=== PATIENT | male | born 1965 | race Caucasian/White ===

== ENCOUNTER 2017-06-30 11:48 | Emergency (ER) | payer SELFPAY ==
[~2017-06-30] VITALS: Ht 180.3 cm; Wt 88.0 kg
[~2017-06-30 11:48] MED LIST: AGM875 PO; ALBU1AER9 INH; AZIT500T26 PO; EPP3 IM; GUAI100L PO; LCTX PO; PRD/1 PO
[2017-06-30 11:54] VITALS: TEMP 36.9; Ht 180.3 cm; Wt 88.0 kg
[2017-06-30 13:08] LABS: BASO % 0.4 %; BASO ABS # 0.02 K/uL (0-0.2); COMPLETE YES; EOS % 2.1 %; HEMATOCRIT 43.9 % (42-52); IG% 0.2 %; LYMPH % 23.4 %; MEAN CELL VOLUME 84.9 fL (80-100); MEAN CORPUSCULAR HEMOGLOBIN 31.7 pg (25-34); MEAN CORPUSCULAR HGB CONC 37.4 g/dl (32-36); MEAN PLATELET VOLUME 10.6 fL (7.4-10.4); MONO % 5.5 %; NEUT % 68.4 %; PLATELET COUNT 164 K/uL (130-400); RED BLOOD COUNT 5.17 M/uL (4.7-6.1); WHITE BLOOD COUNT 5.12 K/uL (4.8-10.8)
[2017-06-30 13:29] LABS: URINE APPEARANCE CLEAR (CLEAR); URINE BILIRUBIN NEG (NEG); URINE COLOR YELLOW; URINE EPITHELIAL CELL AUTO 0-5 /lpf (0-5); URINE NITRITE NEG (NEG); URINE SPECIFIC GRAVITY 1.037 (1.000-1.030); UROBILINOGEN NEG (NEG); ZZUR CULT IF INDIC CLEAN CATCH NO
[2017-06-30] MEDS ORDERED: NovoLIN-R INSULIN PER UNIT CHARGE SC STA (13:30)
[2017-06-30] MEDS ORDERED: NovoLIN-R INSULIN PER UNIT CHARGE IV STA (13:30)
[2017-06-30 13:45] LABS: MANUAL MICROSCOPIC REQUIRED? NO; REVIEW REQ? NO
[2017-06-30 14:05] LABS: VEN BLD GAS O2 SATURATION 64.6 %; VEN BLOOD GAS BASE EXCESS 1.2 mEq/L
[2017-06-30 14:32] LABS: BUN/CREATININE RATIO 12.3 (10-20); CALCIUM 8.9 mg/dl (8.5-10.1); CREATININE 1.2 mg/dl (0.60-1.40); POTASSIUM 4.3 mmol/L (3.5-5.1)
[2017-06-30 14:45] LABS: BETA-HYDROXYBUTYRATE 1.63 mg/dL (0.2-2.81)
[2017-06-30] MEDS ORDERED: LANTUS PER UNIT CHARGE SQ STA (14:56)
[2017-06-30 15:23] VITALS: BP 117/88; PULSE 93; O2SAT 98
--- NOTE | 2017-06-30 15:45 | EMERGENCY ROOM VISIT NOTE ---
History Report prepared by Jaylon: Emilio Roger Under the Supervision of: Dr. Bob Dumont D.O. First contact with patient: 12:37 Chief Complaint: HYPERGLYCEMIA Stated Complaint: ELEVATED BLOOD SUGAR Nursing Triage Summary: pt states he was sent to ER for [facility] for high blood sugar. 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 pt had BSG taken and Blood sugar >450. pt states for past 9 months he has been urinating frequently. no hx of diabetes History of Present Illness The patient is a 52 year old male who presents to the Emergency Room with complaints of elevated blood sugar occurring earlier this morning. The patient states that he was at [facility] for a physical, and they noticed that he had a very high blood sugar. The patient states that he does not think that he is diabetic, though he has been urinating much more frequently for the past 9 months. The patient denies any family history of diabetes. He denies any recent weight gain or weight loss. He notes that he has a history of gall bladder surgery. Patient denies all other complaints. He is completely asymptomatic with the exception of urinary frequency. Pt denies headache, change in vision, fevers, chest pain, shortness of breath, nausea, vomiting, diarrhea, pain with urination, and melena. Source of History: patient Onset: this morning Position: other (global) Quality: other (hyperglycemia) Timing: constant Associated Symptoms: + urinary symptoms Review of Systems See HPI for pertinent positives & negatives. A total of 10 systems reviewed and were otherwise negative. Past Medical & Surgical Diabetes Family History Patient reports no known family medical history. Social History Smoking Status: Never Smoker Marital Status: single Occupation Status: employed Current/Historical Medications No Active Prescriptions or Reported Meds Allergies Coded Allergies: No Known Allergies (Verified , 06/30/17) Physical Exam Vital Signs Date Time Temp Pulse Resp B/P (MAP) Pulse Ox O2 Delivery O2 Flow Rate FiO2 06/30/17 15:23 93 16 117/88 98 Room Air 06/30/17 13:43 84 18 126/88 98 Room Air 06/30/17 11:54 36.9 87 20 134/88 97 Room Air Physical Exam GENERAL: Sitting up in bed, alert, well appearing, well nourished, no distress, non-toxic EYE EXAM: normal conjunctiva, PERRL and EOM's grossly intact OROPHARYNX: no exudate, no erythema, lips, buccal mucosa, and tongue normal and mucous membranes are moist NECK: supple, no nuchal rigidity, no adenopathy, non-tender LUNGS: Clear to auscultation. Normal chest wall mechanics HEART: no murmurs, S1 normal and S2 normal ABDOMEN: abdomen soft, non-tender, normo-active bowel sounds, no masses, no rebound or guarding. BACK: Back is symmetrical on inspection and there is no deformity, no midline tenderness, no CVA tenderness. SKIN: no rashes and no bruising UPPER EXTREMITIES: upper extremities are grossly normal. LOWER EXTREMITIES: No pitting edema. NEURO EXAM: Normal sensorium, cranial nerves II-XII grossly intact, normal speech, no gross weakness of arms, no gross weakness of legs. Gross sensation intact. Medical Decision & Procedures Laboratory Results 06/30/17 12:14 Red Blood Count 5.17, Mean Corpuscular Volume 84.9, Mean Corpuscular Hemoglobin 31.7, Mean Corpuscular Hemoglobin Concent 37.4, Mean Platelet Volume 10.6, Neutrophils (%) (Auto) 68.4, Lymphocytes (%) (Auto) 23.4, Monocytes (%) (Auto) 5.5, Eosinophils (%) (Auto) 2.1, Basophils (%) (Auto) 0.4, Neutrophils # (Auto) 3.50, Lymphocytes # (Auto) 1.20, Monocytes # (Auto) 0.28, Eosinophils # (Auto) 0.11, Basophils # (Auto) 0.02 06/30/17 12:14 Test 06/30/17 12:14 06/30/17 13:46 06/30/17 14:28 White Blood Count 5.12 K/uL (4.8-10.8) Red Blood Count 5.17 M/uL (4.7-6.1) Hemoglobin 16.4 g/dL (14.0-18.0) Hematocrit 43.9 % (42-52) Mean Corpuscular Volume 84.9 fL (80-100) Mean Corpuscular Hemoglobin 31.7 pg (25-34) Mean Corpuscular Hemoglobin Concent 37.4 g/dl (32-36) Platelet Count 164 K/uL (130-400) Mean Platelet Volume 10.6 fL (7.4-10.4) Neutrophils (%) (Auto) 68.4 % Lymphocytes (%) (Auto) 23.4 % Monocytes (%) (Auto) 5.5 % Eosinophils (%) (Auto) 2.1 % Basophils (%) (Auto) 0.4 % Neutrophils # (Auto) 3.50 K/uL (1.4-6.5) Lymphocytes # (Auto) 1.20 K/uL (1.2-3.4) Monocytes # (Auto) 0.28 K/uL (0.11-0.59) Eosinophils # (Auto) 0.11 K/uL (0-0.5) Basophils # (Auto) 0.02 K/uL (0-0.2) RDW Standard Deviation 38.8 fL (36.4-46.3) RDW Coefficient of Variation 12.6 % (11.5-14.5) Immature Granulocyte % (Auto) 0.2 % Immature Granulocyte # (Auto) 0.01 K/uL (0.00-0.02) Urine Color YELLOW Urine Appearance CLEAR (CLEAR) Urine pH 5.0 (4.5-7.5) Urine Specific Adell 1.037 (1.000-1.030) Urine Protein NEG (NEG) Urine Glucose (UA) 3+ (NEG) Urine Ketones NEG (NEG) Urine Occult Blood NEG (NEG) Urine Nitrite NEG (NEG) Urine Bilirubin NEG (NEG) Urine Urobilinogen NEG (NEG) Urine Leukocyte Esterase NEG (NEG) Urine WBC (Auto) 0 /hpf (0-5) Urine RBC (Auto) 0-4 /hpf (0-4) Urine Hyaline Casts (Auto) 0 /lpf (0-5) Urine Epithelial Cells (Auto) 0-5 /lpf (0-5) Urine Bacteria (Auto) NEG (NEG) Anion Gap 12.0 mmol/L (3-11) Est Creatinine Clear Calc Drug Dose 75.8 ml/min Estimated GFR () 79.5 Estimated GFR (Non- 68.6 BUN/Creatinine Ratio 12.3 (10-20) Calcium Level 8.9 mg/dl (8.5-10.1) Total Bilirubin 0.9 mg/dl (0.2-1) Direct Bilirubin 0.2 mg/dl (0-0.2) Aspartate Amino Transf (AST/SGOT) 19 U/L (15-37) Alanine Aminotransferase (ALT/SGPT) 41 U/L (12-78) Alkaline Phosphatase 191 U/L (45-117) Total Protein 7.2 gm/dl (6.4-8.2) Albumin 4.0 gm/dl (3.4-5.0) Lipase 174 U/L (73-393) Beta-Hydroxybutyric Acid 1.63 mg/dL (0.2-2.81) Venous Blood pH 7.41 (7.36-7.41) Venous Blood Partial Pressure CO2 42 mmHg (38.0-50.0) Venous Blood Partial Pressure O2 33 mmHg Venous Blood HCO3 26 mmol/L Venous Blood Oxygen Saturation 64.6 % Venous Blood Base Excess 1.2 mEq/L Bedside Glucose 436 mg/dl (70-99) Laboratory results per my review. Medications Administered Medications (Trade) Dose Ordered Sig/Luis Carlos Route Start Time Stop Time Status Last Admin Dose Admin Insulin Human Regular (novoLIN-R U-100 PER UNIT) 4 units NOW STAT IV 06/30/17 13:30 06/30/17 13:32 DC 06/30/17 13:39 4 UNITS Insulin Human Regular (novoLIN-R U-100 PER UNIT) 8 units NOW STAT SC 06/30/17 13:30 06/30/17 13:32 DC 06/30/17 13:39 8 UNITS Insulin Glargine (Lantus Per Unit) 10 units 1456 STAT SQ 06/30/17 14:56 06/30/17 14:57 DC 06/30/17 15:23 10 UNITS ED Course ED COURSE: Vital signs were reviewed and showed hypertension The patients medical record was reviewed The above diagnostic studies were performed and reviewed. ED treatments and interventions as stated above. 1237: The patient was evaluated in room C11. A complete history and physical examination was performed. 1330: Insulin Human Regular 8 units SC, Insulin Juman Regular 4 units IV 1434: I reevaluated the patient, and his blood sugar was 430 1453: I discussed the patient's case with Dr. Stevenson, Endocrinology, and she suggests subcutaneous Lantus 1456: Lantus Per Unit 10 units SQ 1510: Upon reevaluation, the patient is resting.I discussed my findings with the patient and he understands and agrees with the treatment plan. Based on the patients age, coexisting illnesses, exam and lab findings the decision to treat as an outpatient was made. The patient remained stable while under my care. The patient appeared well at the time of discharge. Medical Decision Differential Diagnosis includes but is not limited to dehydration, stroke, anemia, hypoglycemia, hyponatremia, hypernatremia, urinary tract infection, pneumonia, bronchitis, sepsis, gastroenteritis, additional abdominal pathology, metabolic abnormalities and infections. Patient is a 53-year-old male who presents the ER referred in for hyperglycemia from urgent care. His only complaint is urinary frequency past several months. No history of diabetes. CBC was unremarkable. BMP shows a blood sugar of 635. No. No ketones. Beta hydroxybutyric acid was negative. BSG Missy down from 65 to 4:30. He is given a liter normal saline. He is given 8 units subcutaneous insulin along with 4 units IV. I discussed this case with Ms. rivera from endocrinology. She is agreeable to seeing the patient tomorrow 1: 30. She recommended 10 units subcutaneous Lantus for tonight. Discussed case with care management and they are attempting to set him up with test strips and a glucometer. He has no insurance and consequently I felt it was most reasonable as he is not in DKA to have him worked up as an outpatient. With the Lantus that was given a felt was reasonable discharged him with his blood sugar of 400 as it will continue to trend down but did not bottom out. Patient was updated regards to these findings. Discussed with Pt concerning signs and symptoms to watch out for. Pt was instructed to follow up with their PCP and discussed with the patient their option to return to the ED at anytime for persistent or worsening symptoms. The appropriate anticipatory guidance and out- patient management, including indications for return to the emergency department , were explained at length to the patient and understood. Medication Reconcilliation Current Medication List: was personally reviewed by me Blood Pressure Screening Patient's blood pressure: Elevated blood pressure Blood pressure disposition: Elevated BP felt to be situational Consults Time Called: [id number] Consulting Physician: Dr. Setvenson, Endocrinology Returned Call: [phone] I discussed the patient's case with Dr. Stevenson, Endocrinology, and she suggests subcutaneous Lantus Impression Primary Impression: Diabetes Additional Impression: Hyperglycemia Scribe Attestation The scribe's documentation has been prepared under my direction and personally reviewed by me in its entirety. I confirm that the note above accurately reflects all work, treatment, procedures, and medical decision making performed by me. Departure Information Dispostion Home / Self-Care Prescriptions No Active Prescriptions or Reported Meds Referrals Kamaljit Valdez M.D. (PCP) Forms HOME CARE DOCUMENTATION FORM, IMPORTANT VISIT INFORMATION, WORK / SCHOOL INSTRUCTIONS Patient Instructions ED Hyperglycemia Diabetic, Hyperglycemia, [facility] Additional Instructions Please follow up with your primary care doctor or if you are a student, [facility] with in the next 24 hours. Any worsening of your symptoms, please return to the ED immediately. This includes any fevers greater than 100.4, worsening pain, chest pain, shortness breath, persistent nausea, vomiting, unable to eat or drink, or any other concerning signs or symptoms from your standpoint. Your blood who was found to be significantly elevated. You are a newly diagnosis diabetic. Please remain hydrated. Please follow-up with endocrinology tomorrow as set up by care management. Problem Qualifiers Primary Impression: Diabetes Diabetes mellitus type: other specified (including ALFRED) Diabetes mellitus complication status: with unspecified complications Diabetes mellitus senior living insulin use: without terminal gauger use Qualified Codes: E13.8 - Other specified diabetes mellitus with unspecified complications
== END 2017-06-30 16:07 | disposition home or self-care (01) ==
LOC: C.EDB 11:49 → C.EDC 16:07
DX: E11.65 Type 2 diabetes mellitus with hyperglycemia (principal)

== ENCOUNTER 2022-06-15 09:14 | Inpatient (IN) ==
[2022-06-15] MEDS ORDERED: methylPREDNISolone 125 MG/2 ML VIAL IV STA (09:35)
[2022-06-15] MEDS ORDERED: ALBUT/IPRATROP 3MG/0.5MG NEB 3 ML VIAL NEB ONE (09:35)
--- NOTE | 2022-06-15 09:40 | Emergency Department Note ---
Impression & Plan Respiratory failure, CHF (congestive heart failure), Acute CO, SOB (shortness of breath) ED Provider Note NAME: PATRICK CARLISLE AGE: 57 SEX: M : 1965 ARRIVES VIA: Walk-In INFORMANT: [Patient] ED PROVIDER(S): [Sina German MD] CHIEF COMPLAINT: Shortness of breath HISTORY OF PRESENT ILLNESS: The patient is a 57-year-old male with no diagnosed lung or heart disease. The patient states that for 4 days, he has felt short of breath and has had some intermittent mild central chest pain. He states that things have escalated to the point where he can only take a few steps without having to stop and catch his breath. He presents hypoxic tachypneic and tachycardic in triage. There has been no real increased cough, no congestion or stuffy nose. No leg swelling. He has no history of previous CHF. The patient does not have any type of medication for his lungs at home, no inhaler. Of note, the patient did take a COVID test at home over this weekend, this was negative. REVIEW OF SYSTEMS: See HPI for pertinent positives and negatives. A total of ten systems were reviewed and were otherwise negative. PMHx/PSHx: See Below SOCIAL HISTORY: See Below. PHYSICAL EXAM: GENERAL: Patient is in significant respiratory distress. HEENT: No acute trauma, normocephalic atraumatic, mucous membranes moist, no nasal congestion, no scleral icterus. NECK: No stridor, no adenopathy, no meningismus, trachea is midline. LUNGS: Diminished breath sounds bilaterally, no obvious wheeze or rhonchi. Breath sounds are equal. There is an increased respiratory rate and some significant respiratory distress with accessory muscle use. Patient talks in ve ry short sentences. HEART: Tachycardic, regular rhythm, no obvious murmur. ABDOMEN: Soft, nontender, bowel sounds positive, no peritonitis. EXTREMITIES: No cyanosis or edema, full range of motion of all the joints without pain or difficulty, no signs for acute trauma. NEUROLOGIC: Oriented x 3, no acute motor or sensory deficits, no focal weakness. SKIN: No rash, no jaundice, moderate diaphoresis. DIFFERENTIAL DIAGNOSIS: Reactive airway disease, COVID-19, RSV, influenza, pneumonia, pneumothorax, COPD, CHF, infection, cardiac ischemia, CO, pulmonary embolism, bronchitis, musculoskeletal, gastrointestinal, as well as other pathologies. EMERGENCY DEPARTMENT COURSE/PROCEDURES: ECG: Shortness of breath and chest pain. The rhythm is difficult to interpret because of artifact. Atrial flutter with a first-degree AV block is suggested. The rate is128. There are Q waves inferiorly with ST elevation inferiorly. There is some ST depression along the anterior leads. ECG is consistent with acute inferior posterior CO. 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 QTC is 470. Continuous Cardiac Monitoring: An order was placed for continuous cardiac monitoring. The monitor shows a rate of 128 with atrial flutter with a first- degree AV block. Critical Care Note: I have personally spent 52 minutes of critical care time in the direct management of this patient. This includes bedside care, interpretation of diagnostic studies, and testing, discussion with consultants, patient, and family members, and other required patient management activities. This 52 minutes is in excess of all separately billable procedures. Intubation: This procedure was performed by me. Patient received etomidate IV, succinylcholine IV. The patient was hyper oxygenated. Using rapid technique, the patient was intubated with the glide scope. Some suction was required. No complication. The endotracheal tube was placed at 24 centimeters at the the lips. Good O2 saturation noted afterwards. Good CO2 color change. Breath sounds equal bilaterally. Post intubation chest x-ray demonstrated the tube to be slightly high so the tube was advanced 1cm to 25 cm at the lips. MEDICAL DECISION MAKING: There is a moderate leukocytosis, this would be consistent with infection. There is no concerning anemia. There is a normal platelet count. No coagulopathy. D-dimer was elevated at almost 3000. Renal panel testing showed a lower sodium, no renal failure. Glucose was elevated. Some subtle liver enzyme elevation was noted. BNP was elevated consistent with fluid overload. Chest x-ray does show CHF. ECG showed what appeared to be atrial flutter with some significant baseline artifact. There was ST elevation consistent with an inferior posterior CO. Cardiac troponin was elevated consistent with cardiac injury. Respiratory bio fire testing was negative. On exam, the patient was diaphoretic, visibly short of breath, tachypneic and hypoxic. He was in respiratory distress. The patient was aggressively managed. With his ECG findings, a heart alert was called. He received nitroglycerin paste, 2 inches. He had a Tam catheter placed and was given 60 mg of IV Lasix. He was placed on BiPAP with a DuoNeb. He received oral aspirin. He received IV Ativan. He received IV Solu-Medrol. The patient continued to worsen despite the above treatment. He was placed on a nitroglycerin drip. I discussed options with him. Intubation was felt warranted. The patient was intubated using the glide scope, no complication. He was then given IV vecuronium to maintain paralysis. He was placed on a propofol drip. The nitroglycerin drip was continued. The patient is going emergently to the cardiac catheterization laboratory. He appears to have suffered an CO and is now in heart failure. He presents with some chest discomfort, shortness of breath and ECG abnormalities. I did speak with the patient about his findings, I spoke with his brother. I discussed the case with Dr. Black of cardiology. I talked to the on-call hospitalist. 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 Current Living Situation: Alone Current Living Situation Comment: per brother Feels Safe at Home: Yes Allergies Allergies Allergy/AdvReac Type Severity Reaction Status Date / Time No Known Allergies Allergy Unknown Verified 06/30/17 12:27 Results & Data (ED) Vital Signs Vital Signs - 24 hr 06/15/22 09:18 06/15/22 09:53 06/15/22 09:57 Temperature 36.1 C L Temperature Source Temporal Artery Scan Pulse Rate 128 H 126 H Pulse Rate [Apical] 126 H Pulse Rate from SpO2 Sensor Respiratory Rate 34 H 34 H 34 H Respiratory Effort / Characteristics Non-Labored Spontaneous Accessory Muscle Use Labored Short of Breath Spontaneous Accessory Muscle Use Labored Short of Breath Respiratory Depth Normal Respiratory Pattern Regular Tachypnea Blood Pressure 121/77 Blood Pressure [Left Arm] Blood Pressure Mean 91 Blood Pressure Mean [Left Arm] Pulse Oximetry 85 L 96 60 L Oxygen Delivery Method Room Air BiPAP BiPAP Fraction of Inspired Oxygen 60 Sepsis Recent Fever Within 48 Hours No Sepsis New/Unexplained Change in Mental Status No Sepsis Action Taken by Nursing Physician Notified End-Tidal CO2 06/15/22 09:42 06/15/22 09:50 06/15/22 10:04 Temperature Temperature Source Pulse Rate 128 H 130 H 135 H Pulse Rate [Apical] Pulse Rate from SpO2 Sensor 128 H 137 H Respiratory Rate 36 H 10 L 19 Respiratory Effort / Characteristics Respiratory Depth Respiratory Pattern Blood Pressure Blood Pressure [Left Arm] Blood Pressure Mean Blood Pressure Mean [Left Arm] Pulse Oximetry 95 100 Oxygen Delivery Method Fraction of Inspired Oxygen Sepsis Recent Fever Within 48 Hours Sepsis New/Unexplained Change in Mental Status Sepsis Action Taken by Nursing End-Tidal CO2 06/15/22 10:10 06/15/22 09:14 06/15/22 09:14 Temperature Temperature Source Pulse Rate 138 H Pulse Rate [Apical] Pulse Rate from SpO2 Sensor 137 H Respiratory Rate 32 H Respiratory Effort / Characteristics Accessory Muscle Use Gasping/Agonal Retracting Short of Breath Tripoding Respiratory Depth Shallow Respiratory Pattern Blood Pressure 154/124 H Blood Pressure [Left Arm] Blood Pressure Mean 134 Blood Pressure Mean [Left Arm] Pulse Oximetry 98 85 L Oxygen Delivery Method Room Air Fraction of Inspired Oxygen Sepsis Recent Fever Within 48 Hours Sepsis New/Unexplained Change in Mental Status Sepsis Action Taken by Nursing End-Tidal CO2 06/15/22 10:30 06/15/22 10:18 06/15/22 10:08 Temperature Temperature Source Pulse Rate 128 H Pulse Rate [Apical] 144 H 139 H Pulse Rate from SpO2 Sensor Respiratory Rate 18 40 H 42 H Respiratory Effort / Characteristics Respiratory Depth Respiratory Pattern Blood Pressure Blood Pressure [Left Arm] 156/133 H 162/131 H Blood Pressure Mean Blood Pressure Mean [Left Arm] 140 141 Pulse Oximetry 98 97 96 Oxygen Delivery Method Fraction of Inspired Oxygen 80 Sepsis Recent Fever Within 48 Hours Sepsis New/Unexplained Change in Mental Status Sepsis Action Taken by Nursing End-Tidal CO2 06/15/22 10:10 06/15/22 10:10 06/15/22 10:20 Temperature Temperature Source Pulse Rate 144 H Pulse Rate [Apical] 135 H 139 H Pulse Rate from SpO2 Sensor 146 H Respiratory Rate 44 H 44 H 40 H Respiratory Effort / Characteristics Respiratory Depth Respiratory Pattern Blood Pressure 154/128 H Blood Pressure [Left Arm] 173/125 H 154/124 H Blood Pressure Mean 136 Blood Pressure Mean [Left Arm] 141 134 Pulse Oximetry 98 100 94 Oxygen Delivery Method Fraction of Inspired Oxygen Sepsis Recent Fever Within 48 Hours Sepsis New/Unexplained Change in Mental Status Sepsis Action Taken by Nursing End-Tidal CO2 06/15/22 11:00 06/15/22 13:40 06/15/22 13:51 Temperature Temperature Source Pulse Rate 124 H 112 H Pulse Rate [Apical] Pulse Rate from SpO2 Sensor Respiratory Rate 21 Respiratory Effort / Characteristics Respiratory Depth Respiratory Pattern Blood Pressure 155/102 H Blood Pressure [Left Arm] Blood Pressure Mean Blood Pressure Mean [Left Arm] Pulse Oximetry 99 Oxygen Delivery Method Mechanical Vent Fraction of Inspired Oxygen 50 Sepsis Recent Fever Within 48 Hours Sepsis New/Unexplained Change in Mental Status Sepsis Action Taken by Nursing End-Tidal CO2 34 Home Medications Current Medication List: was personally reviewed by me Laboratory Data Attestation: I reviewed the patient's lab results. Result diagrams: 06/15/22 09:52 06/15/22 15:55 Lab Results 06/15/22 06/15/22 06/15/22 Range/Units 09:39 09:52 09:52 WBC 17.07 H (4.8-10.8) K/ul RBC 5.66 (4.63-6.08) M/uL Hgb 16.8 (14.0-18.0) g/dl Hct 48.7 (40.1-51.0) % MCV 86.0 (80.0-100.0) fL MCH 29.7 (25.0-34.0) pg MCHC 34.5 (32.0-36.0) g/dL RDW Std Deviation 37.2 (36.4-46.3) fL RDW Coeff of Kiya 11.9 (11.5-14.5) % Plt Count 354 (130-400) K/uL MPV 10.5 (9.4-12.4) fL Immature Gran % (Auto) 0.9 % Neut % (Auto) 85.8 % Lymph % (Auto) 7.6 % [place] % (Auto) 5.2 % Eos % (Auto) 0.1 % Baso % (Auto) 0.4 % Neut # (Auto) 14.66 H (1.4-6.5) K/uL Lymph # (Auto) 1.29 (1.2-3.4) K/uL [place] # (Auto) 0.89 H (0.24-0.82) K/uL Eos # (Auto) 0.01 (0-0.50) K/uL Baso # (Auto) 0.06 (0-0.2) K/uL Immature Gran # (Auto) 0.16 H (0.00-0.02) K/uL PT (9.0-12.0) Seconds INR (0.9-1.1) APTT (21.0-31.0) Seconds PTT Ratio D-Dimer (0-500) ug/L FEU Sodium 132 L (136-145) mmol/L Potassium 4.1 (3.5-5.1) mmol/L Chloride 92 L (98-107) mmol/L Carbon Dioxide 26 (21-32) mmol/L Anion Gap 14 H (3-11) BUN 19 (6-23) mg/dl Creatinine 1.04 (0.6-1.4) mg/dl Est Cr Clr Drug Dosing 87.6 ml/min Est GFR ( Amer) 91.3 ml/min Est GFR (Non-Af Amer) 78.8 ml/min BUN/Creatinine Ratio 18.3 (10-20) Glucose 397 H* (70-99(Fasting)) mg/dl Calcium 9.6 (8.5-10.1) mg/dl Magnesium 1.8 (1.7-2.4) mg/dl Total Bilirubin 1.5 H (0.2-1.0) mg/dl AST 24 (13-39) U/L ALT 57 H (7-52) U/L Alkaline Phosphatase 142 H (34-104) U/L Troponin I High Sens 3598.8 H* (0-20) pg/ml B-Natriuretic Peptide (0-100) pg/ml Total Protein 8.0 (6.0-8.3) gm/dl Albumin 4.1 (3.4-5.0) gm/dl Globulin 3.9 (2.5-4.0) gm/dl Albumin/Globulin Ratio 1.1 (0.9-2) Procalcitonin (0-0.5) ng/ml Adenovirus (PCR) Not Detected (NotDetected) B. pertussis DNA (PCR) Not Detected (NotDetected) B.parapertussis DNA PCR Not Detected (NotDetected) C. pneumoniae DNA (PCR) Not Detected (NotDetected) Coronavirus OC43 (PCR) Not Detected (NotDetected) Coronavirus HKU1 (PCR) Not Detected (NotDetected) Coronavirus 229E (PCR) Not Detected (NotDetected) SARS-CoV-2 (PCR) Not Detected (NotDetected) Coronavirus NL63 (PCR) Not Detected (NotDetected) Human Metapneumovir PCR Not Detected (NotDetected) Influenza Type A (PCR) Not Detected (NotDetected) Influenza Type B (PCR) Not Detected (NotDetected) M. pneumoniae (PCR) Not Detected (NotDetected) Parainfluenza 1 (PCR) Not Detected (NotDetected) Parainfluenza 2 (PCR) Not Detected (NotDetected) Parainfluenza 3 (PCR) Not Detected (NotDetected) Parainfluenza 4 (PCR) Not Detected (NotDetected) RSV (PCR) Not Detected (NotDetected) Entero/Rhino (PCR) Not Detected (NotDetected) 06/15/22 06/15/22 06/15/22 Range/Units 09:52 09:52 10:05 WBC (4.8-10.8) K/ul RBC (4.63-6.08) M/uL Hgb (14.0-18.0) g/dl Hct (40.1-51.0) % MCV (80.0-100.0) fL MCH (25.0-34.0) pg MCHC (32.0-36.0) g/dL RDW Std Deviation (36.4-46.3) fL RDW Coeff of Kiya (11.5-14.5) % Plt Count (130-400) K/uL MPV (9.4-12.4) fL Immature Gran % (Auto) % Neut % (Auto) % Lymph % (Auto) % [place] % (Auto) % Eos % (Auto) % Baso % (Auto) % Neut # (Auto) (1.4-6.5) K/uL Lymph # (Auto) (1.2-3.4) K/uL [place] # (Auto) (0.24-0.82) K/uL Eos # (Auto) (0-0.50) K/uL Baso # (Auto) (0-0.2) K/uL Immature Gran # (Auto) (0.00-0.02) K/uL PT 11.2 (9.0-12.0) Seconds INR 1.1 (0.9-1.1) APTT 25.6 (21.0-31.0) Seconds PTT Ratio 0.9 D-Dimer 2930 H* (0-500) ug/L FEU Sodium (136-145) mmol/L Potassium (3.5-5.1) mmol/L Chloride (98-107) mmol/L Carbon Dioxide (21-32) mmol/L Anion Gap (3-11) BUN (6-23) mg/dl Creatinine (0.6-1.4) mg/dl Est Cr Clr Drug Dosing ml/min Est GFR ( Amer) ml/min Est GFR (Non-Af Amer) ml/min BUN/Creatinine Ratio (10-20) Glucose (70-99(Fasting)) mg/dl Calcium (8.5-10.1) mg/dl Magnesium (1.7-2.4) mg/dl Total Bilirubin (0.2-1.0) mg/dl AST (13-39) U/L ALT (7-52) U/L Alkaline Phosphatase (34-104) U/L Troponin I High Sens (0-20) pg/ml B-Natriuretic Peptide 884 H (0-100) pg/ml Total Protein (6.0-8.3) gm/dl Albumin (3.4-5.0) gm/dl Globulin (2.5-4.0) gm/dl Albumin/Globulin Ratio (0.9-2) Procalcitonin 0.13 (0-0.5) ng/ml Adenovirus (PCR) (NotDetected) B. pertussis DNA (PCR) (NotDetected) B.parapertussis DNA PCR (NotDetected) C. pneumoniae DNA (PCR) (NotDetected) Coronavirus OC43 (PCR) (NotDetected) Coronavirus HKU1 (PCR) (NotDetected) Coronavirus 229E (PCR) (NotDetected) SARS-CoV-2 (PCR) (NotDetected) Coronavirus NL63 (PCR) (NotDetected) Human Metapneumovir PCR (NotDetected) Influenza Type A (PCR) (NotDetected) Influenza Type B (PCR) (NotDetected) M. pneumoniae (PCR) (NotDetected) Parainfluenza 1 (PCR) (NotDetected) Parainfluenza 2 (PCR) (NotDetected) Parainfluenza 3 (PCR) (NotDetected) Parainfluenza 4 (PCR) (NotDetected) RSV (PCR) (NotDetected) Entero/Rhino (PCR) (NotDetected) Administered Medications Propofol (Diprivan) 1,000 mg in 100 mls @ 10.848 mls/hr IV .Q9H14M [facility]; Protocol Stop: 06/18/22 10:44 Last Admin: 06/15/22 15:40 Dose: 20 mcg/kg/min, 10.8 mls/hr Documented By: TIAGO Co-signed By: ROSETTA Titration: 06/15/22 15:40 Dose: 20 mcg/kg/min, 10.8 mls/hr Documented By: TIAGO Co-signed By: ROSETTA Admin: 06/15/22 10:35 Dose: 20 mcg/kg/min, 10.8 mls/hr Documented By: HS Co-signed By: ELMO Eptifibatide (Integrilin) 75 mg in 100 mls @ 14.464 mls/hr IV .Q6H55M [facility] Stop: 06/16/22 08:00 Last Admin: 06/15/22 15:39 Dose: 2 mcg/kg/min, 14.5 mls/hr Documented By: TB Co-signed By: ROSETTA Pantoprazole Sodium 40 mg/ (Syringe) 10 mls @ 5 mls/min IV DAILY@1100 SUZY Stop: 07/15/22 15:29 Last Admin: 06/15/22 16:31 Dose: 5 mls/min Documented By: TB Fentanyl Citrate (Fentanyl Citrate) 2,500 mcg in 250 mls @ 2.5 mls/hr IV .Q96H [facility]; Protocol Stop: 06/29/22 14:14 Last Admin: 06/15/22 14:43 Dose: 25 mcg/hr, 2.5 mls/hr Documented By: TIAGO Co-signed By: MABEL Insulin Human Regular 250 (units/ Sodium Chloride) 250 mls @ 4.2 mls/hr IV .Q24H [facility]; Protocol Stop: 07/15/22 15:59 Last Titration: 06/15/22 17:36 Dose: 4.2 units/hr, 4.2 mls/hr Documented By: TB Co-signed By: AZAM Admin: 06/15/22 16:31 Dose: 3.4 units/hr, 3.4 mls/hr Documented By: TB Co-signed By: AZAM Insulin Aspart (Insulin Aspart Per Unit) 0 units SC ACHS [facility] Stop: 07/15/22 16:29 Last Admin: 06/15/22 16:31 Dose: Not Given Documented By: TB Co-signed By: AZAM Discontinued Medications Adenosine (Adenosine Iv Soln 3 Mg/Ml 2 Ml Vial) Confirm Administered Dose 6 mg IV .STK-MED ONE Stop: 06/15/22 11:57 Last Admin: 06/15/22 13:43 Dose: 6 mg Documented By: GREER Albuterol (Albut/Ipratrop 3mg/0.5mg Neb 3 Ml Vial) 12 ml NEB ONE ONE; Protocol Stop: 06/15/22 09:36 Last Admin: 06/15/22 09:51 Dose: 12 ml Documented By: JAVIER Aspirin (Aspirin Chew 324 Mg) 324 mg PO NOW STA Stop: 06/15/22 09:49 Last Admin: 06/15/22 09:54 Dose: 324 mg Documented By: ROSY Aspirin (Aspirin Chew 324 Mg) Confirm Administered Dose 324 mg .ROUTE .STK-MED ONE Stop: 06/15/22 09:50 Last Admin: 06/15/22 10:15 Dose: Not Given Documented By: ROSY Eptifibatide (Eptifibatide 0.75 Mg/Ml 75mg Vial (Tariff Supervisor Use Only)) Confirm Administered Dose 75 mg .ROUTE .STK-MED ONE Stop: 06/15/22 11:03 Last Admin: 06/15/22 13:39 Dose: 75 mg Documented By: JAELYN Etomidate (Etomidate 2 Mg/Ml 20 Ml Vial) 25 mg IV NOW ONE Stop: 06/15/22 10:46 Last Admin: 06/15/22 10:32 Dose: 25 mg Documented By: ELMO Fentanyl Citrate (Fentanyl Citrate 2,500 Mcg/250 Ml Bag) Confirm Administered Dose 2,500 mcg IV .STK-MED ONE Stop: 06/15/22 14:06 Last Admin: 06/15/22 14:43 Dose: Not Given Documented By: TB Furosemide (Furosemide 40 Mg/4 Ml Vial) Confirm Administered Dose 80 mg IV .STK- MED ONE Stop: 06/15/22 09:54 Last Admin: 06/15/22 10:15 Dose: Not Given Documented By: HS Furosemide (Furosemide 40 Mg/4 Ml Vial) 60 mg IV NOW STA Stop: 06/15/22 09:54 Last Admin: 06/15/22 09:54 Dose: 60 mg Documented By: ROSY Heparin Sodium (Porcine) (Heparin (Porcine) 1000 Unit/Ml 10 Ml (Tariff Supervisor Use Only)) Confirm Administered Dose 10,000 units .ROUTE .STK-MED ONE Stop: 06/15/22 12:06 Last Admin: 06/15/22 13:45 Dose: 10,000 units Documented By: JAELYN Hydralazine HCl (Hydralazine Hcl 20 Mg/Ml Vial) Confirm Administered Dose 20 mg .ROUTE .STK-MED ONE Stop: 06/15/22 10:09 Last Increment: 06/15/22 10:08 Dose: 10 mg Documented By: ELMO Nitroglycerin/Dextrose (Nitroglycerin/D5w 100 Mcg/Ml) 250 mls @ 6 mls/hr IV .Q24H [facility]; Protocol Stop: 07/15/22 10:14 Last Titration: 06/15/22 10:17 Dose: 10 mcg/min, 6 mls/hr Documented By: Admin: 06/15/22 10:14 Dose: 5 mcg/min, 3 mls/hr Documented By: HS Co-signed By: MABEL Insulin Human Regular (Novolin-R Bolus From Bag) 3.5 units IV ONE ONE Stop: 06/15/22 16:01 Last Admin: 06/15/22 16:31 Dose: 3.5 units Documented By: TB Co-signed By: AZAM Lorazepam (Lorazepam 2 Mg/1 Ml Vial) 0.5 mg IV NOW STA; Protocol Stop: 06/15/22 10:07 Last Admin: 06/15/22 10:15 Dose: 0.5 mg Documented By: ROSY Lorazepam (Lorazepam 2 Mg/1 Ml Vial) Confirm Administered Dose 1 mg .ROUTE .STK- MED ONE Stop: 06/15/22 10:09 Last Admin: 06/15/22 10:38 Dose: Not Given Documented By: ELMO Methylprednisolone (Methylprednisolone 125 Mg/2 Ml Vial) 60 mg IV NOW STA Stop: 06/15/22 09:36 Last Admin: 06/15/22 09:54 Dose: 60 mg Documented By: ROSY Metoprolol Tartrate (Metoprolol Tartrate 1 Mg/Ml Vial) Confirm Administered Dose 5 mg IV .STK-MED ONE Stop: 06/15/22 10:50 Last Admin: 06/15/22 13:40 Dose: 2.5 mg Documented By: JAELYN Miscellaneous (Rapid Sequence Induction Bag) Confirm Administered Dose 1 each .ROUTE .STK-MED ONE Stop: 06/15/22 10:10 Last Admin: 06/15/22 10:46 Dose: Not Given Documented By: ELMO Nitroglycerin (Nitroglycerin 2% Ointment 30gm Tube) 1 inch EXT NOW STA Stop: 06/15/22 09:49 Last Admin: 06/15/22 09:54 Dose: 1 inch Documented By: ROSY Nitroglycerin (Nitroglycerin 2% Ointment 30gm Tube) Confirm Administered Dose 18 inch .ROUTE .STK-MED ONE Stop: 06/15/22 09:50 Last Admin: 06/15/22 10:15 Dose: 18 inch Documented By: ROSY Nitroglycerin/Dextrose (Nitroglycerin/D5w 100 Mcg/Ml Btl) Confirm Administered Dose 25 mg .ROUTE .STK-MED ONE Stop: 06/15/22 10:10 Last Admin: 06/15/22 10:37 Dose: Not Given Documented By: ELMO Propofol (Propofol Iv Emulsion 10 Mg/Ml 100 Ml Vial) Confirm Administered Dose 1,000 mg IV .STK-MED ONE Stop: 06/15/22 10:29 Last Admin: 06/15/22 10:36 Dose: 1,000 mg Documented By: ELMO Co-signed By: ROSY Succinylcholine Chloride (Succinylcholine Chloride 20 Mg/Ml 10 Ml Vial) 135 mg IV NOW ONE Stop: 06/15/22 10:46 Last Admin: 06/15/22 10:32 Dose: 135 mg Documented By: ELMO Vecuronium [place] (Vecuronium [place] 10 Mg Vial) Confirm Administered Dose 10 mg IV .STK-MED ONE Stop: 06/15/22 10:29 Last Admin: 06/15/22 10:37 Dose: 10 mg Documented By: ELMO Co-signed By: ROSY Vecuronium [place] (Vecuronium [place] 10 Mg Vial) 10 mg IV NOW ONE Stop: 06/15/22 10:46 Last Admin: 06/15/22 10:46 Dose: Not Given Documented By: ELMO Imaging Data Radiologist's Impression: Chest X-Ray 06/15/22 09:35 XR chest 1V portable HISTORY: Dyspnea COMPARISON: Chest 07/30/2009. FINDINGS: The cardiac silhouette is borderline enlarged. No pneumothorax. No pleural effusions. There is perihilar interstitial/vascular thickening with bilateral lower lobe airspace opacities. IMPRESSION: Perihilar interstitial/vascular thickening with bilateral lower lobe airspace opacity. This could represent pulmonary edema or an atypical pneumonia. ACT 112: Negative or not required by law. Electronically signed by: True Green M.D. 06/15/2022 9:59 AM Chest X-Ray 06/15/22 10:36 XR chest 1V portable HISTORY: post intubation COMPARISON: Chest 06/15/2022. FINDINGS: Endotracheal tube terminates 6 cm from the jose a. This could be advanced by approximately 2 to 3 cm. No definite pneumothorax. No pleural fusions. The heart is mildly enlarged. Perihilar interstitial/vascular thickening and airspace opacities have progressed. IMPRESSION: 1. The endotracheal tube terminates 6 cm from the jose a. This could be advanced by approximately 2 to 3 cm. 2. Interval progression of the perihilar airspace opacities and interstitial thickening. This suggests worsening pulmonary edema. A pneumonia could also have a similar appearance. ACT 112: Negative or not required by law. Electronically signed by: True Green M.D. 06/15/2022 10:43 AM Discharge Plan Visit Data Chief Complaint: Shortness of Breath/Dyspnea Stated Complaint: SOB ED Provider: Sina German Discharge Problem: Respiratory failure, CHF (congestive heart failure), Acute CO, SOB (shortness of breath) Patient Disposition: Admitted As Inpatient Condition: Serious Discharge Instructions Interventions: ED Discharge Assessment Last Done: 06/15/22 11:00
[2022-06-15] MEDS ORDERED: NITROGLYCERIN 2% OINTMENT 30GM TUBE EXT STA (09:48)
[2022-06-15] MEDS ORDERED: ASPIRIN CHEW 324 MG PO STA (09:48)
[2022-06-15] MEDS ORDERED: ASPIRIN CHEW 324 MG ONE (09:49)
[2022-06-15] MEDS ORDERED: NITROGLYCERIN 2% OINTMENT 30GM TUBE ONE (09:49)
[2022-06-15] MEDS ORDERED: FUROSEMIDE 40 MG/4 ML VIAL IV STA (09:53)
[2022-06-15] MEDS ORDERED: FUROSEMIDE 40 MG/4 ML VIAL IV ONE (09:53)
[2022-06-15] MEDS ORDERED: fentaNYL citrate 100 MCG/2 ML VIAL ONE (09:54)
[2022-06-15] MEDS ORDERED: niCARdipine HCL INJ 2.5 MG/ML 10 ML AMP ONE (09:54)
[2022-06-15] MEDS ORDERED: HEPARIN (PORCINE) 1000 UNIT/ML 10 ML (CATH LAB USE ONLY) ONE ×2 (09:54→12:05)
[2022-06-15] MEDS ORDERED: NITROGLYCERIN/D5W 100MCG/ML 20ML SYR ONE ×2 (09:54→12:48)
[2022-06-15] MEDS ORDERED: MIDAZOLAM HCL 1 MG/ML 2ML VIAL ONE (09:54)
--- NOTE | 2022-06-15 10:00 | XRay Report ---
XR chest 1V portable HISTORY: Dyspnea COMPARISON: Chest 07/30/2009. FINDINGS: The cardiac silhouette is borderline enlarged. No pneumothorax. No pleural effusions. There is perihilar interstitial/vascular thickening with bilateral lower lobe airspace opacities. IMPRESSION: Perihilar interstitial/vascular thickening with bilateral lower lobe airspace opacity. This could rep resent pulmonary edema or an atypical pneumonia. ACT 112: Negative or not required by law. Electronically signed by: True Green M.D. 06/15/2022 9:59 AM
[2022-06-15] MEDS ORDERED: ATROPINE SULFATE 0.1 MG/ML 10ML SYR IV ONE (10:02)
[2022-06-15] MEDS ORDERED: STAT IV Infusion **Titration per Protocol STA ×4 (10:06→15:47)
[2022-06-15] MEDS ORDERED: LORazepam 2 MG/1 ML VIAL IV STA (10:06)
[2022-06-15] MEDS ORDERED: hydrALAZINE HCL 20 MG/ML VIAL ONE (10:08)
[2022-06-15] MEDS ORDERED: LORazepam 2 MG/1 ML VIAL ONE (10:08)
[2022-06-15] MEDS ORDERED: RAPID SEQUENCE INDUCTION BAG ONE (10:09)
[2022-06-15] MEDS ORDERED: NITROGLYCERIN/D5W 100 MCG/ML BTL ONE (10:09)
[2022-06-15 10:12] LABS: Basophils # (auto) 0.06 K/uL (0-0.2); Basophils % (auto) 0.4 %; Eosinophils # (auto) 0.01 K/uL (0-0.50); Eosinophils % (auto) 0.1 %; Hematocrit (blood only) 48.7 % (40.1-51.0); Hemoglobin 16.8 g/dl (14.0-18.0); Immature Granulocytes # (auto) 0.16 K/uL (0.00-0.02); Immature Granulocytes % (auto) 0.9 %; Lymphocytes # (auto) 1.29 K/uL (1.2-3.4); Lymphocytes % (auto) 7.6 %; Mean Corpuscular Hemoglobin 29.7 pg (25.0-34.0); Mean Corpuscular Hgb Conc 34.5 g/dL (32.0-36.0); Mean Platelet Volume 10.5 fL (9.4-12.4); Monocytes # (auto) 0.89 K/uL (0.24-0.82); Monocytes % (auto) 5.2 %; Neutrophils # (auto) 14.66 K/uL (1.4-6.5); Neutrophils % (auto) 85.8 %; Platelet Count 354 K/uL (130-400); RDW Coefficient of Variation 11.9 % (11.5-14.5); RDW Standard Deviation 37.2 fL (36.4-46.3); Red Blood Count 5.66 M/uL (4.63-6.08); White Blood Count 17.07 K/ul (4.8-10.8)
[2022-06-15] MEDS ORDERED: NITROGLYCERIN/D5W 100MCG/ML 250 ML IV SCH (10:15)
[2022-06-15] MEDS ORDERED: PROPOFOL IV EMULSION 10 MG/ML 100 ML VIAL IV ONE (10:28)
[2022-06-15] MEDS ORDERED: VECURONIUM BROMIDE 10 MG VIAL IV ONE ×3 (10:28→18:59)
[2022-06-15] MEDS ORDERED: NOREPINEPHRINE BITARTRATE 1 MG/ML 4 ML VIAL (CATH LAB USE ONLY) ONE (10:28)
[2022-06-15 10:30] LABS: INR 1.1 (0.9-1.1); Partial Thromboplastin Ratio 0.9; Partial Thromboplastin Time 25.6 Seconds (21.0-31.0); Prothrombin Time 11.2 Seconds (9.0-12.0)
[2022-06-15] MEDS: propofoL 1,000 MG/100 ML VIAL IV SCH ×2 (10:35→15:40)
[2022-06-15] MEDS ORDERED: PROPOFOL BOLUS FROM BAG IV PRN (10:36)
[2022-06-15 10:39] LABS: D Dimer 2930 ug/L FEU (0-500)
[2022-06-15] MEDS ORDERED: ETOMIDATE 2 MG/ML 20 ML VIAL IV ONE ×2 (10:45→18:59)
[2022-06-15] MEDS ORDERED: SUCCINYLCHOLINE CHLORIDE 20 MG/ML 10 ML VIAL IV ONE ×2 (10:45→18:59)
--- NOTE | 2022-06-15 10:45 | XRay Report ---
XR chest 1V portable HISTORY: post intubation COMPARISON: Chest 06/15/2022. FINDINGS: Endotracheal tube terminates 6 cm from the jose a. This could be advanced by approximately 2 to 3 cm. No definite pneumothorax. No pleural fusions. The heart is mildly enlarged. Perihilar inte rstitial/vascular thickening and airspace opacities have progressed. IMPRESSION: 1. The endotracheal tube terminates 6 cm from the jose a. This could be advanced by approximately 2 t o 3 cm. 2. Interval progression of the perihilar airspace opacities and interstitial thickening. This suggest s worsening pulmonary edema. A pneumonia could also have a similar appearance. ACT 112: Negative or not required by law. Electronically signed by: True Green M.D. 06/15/2022 10:43 AM
[2022-06-15 10:49] LABS: Albumin Globulin Ratio 1.1 (0.9-2); Albumin Level 4.1 gm/dl (3.4-5.0); BUN Creatinine Ratio 18.3 (10-20); Bilirubin,Total 1.5 mg/dl (0.2-1.0); Calcium 9.6 mg/dl (8.5-10.1); Creatinine Clr Calc Pharmacy 87.6 ml/min; Est GFR (African American) 91.3 ml/min; Est GFR (Non-African American) 78.8 ml/min; Globulin 3.9 gm/dl (2.5-4.0); Magnesium 1.8 mg/dl (1.7-2.4); Potassium 4.1 mmol/L (3.5-5.1); Troponin I High Sensitivity 3598.8 pg/ml (0-20)
[2022-06-15] MEDS ORDERED: METOPROLOL TARTRATE 1 MG/ML VIAL IV ONE (10:49)
[2022-06-15] MEDS ORDERED: EPTIFIBATIDE 0.75 MG/ML 75MG VIAL (CATH LAB USE ONLY) ONE (11:02)
--- NOTE | 2022-06-15 11:36 | History & Physical Report ---
Date of Service June 15, 2022 Assessment & Plan (1) STEMI (ST elevation myocardial infarction): Plan: Patient admitted following 3 day history of dyspnea and onset of chest pain. Elevated HScTNI with ECG changes. Patient was intubated and emergently taken to the laboratory geneticist for interventional evaluation - ASA- loaded in EMD continue with 81 mg ASA daily - Other anti-platlet medicaitons following cath and per cardiology - BB initiation following laboratory geneticist - Lipid panel in AM - HGBA1C in am (2) Respiratory failure: Plan: Acute respiratory failure secondary to pulmonary edema and STEMI - Requiring intubation and mechanical ventilation - Wean Ventilatory support when able - ARDSnet protocol- defer further management to ICU - Sedation with Propofol infusion and Fentanyl PRN pushes (3) Pulmonary edema: Plan: Likely secondary to acute heart failure from STEMI - Await laboratory geneticist procedure and evaluation of EF and valves - Lasix 60mg IV given in EMD - evaluate for redosing following laboratory geneticist and hemodyanimcs (4) Hyperglycemia, unspecified: Plan: Hyperglycemia without diagnosis of DM - To ICU with hyperglycemia protocl and BG checks q6 while NPO and then Ac/HS - HGBA1C in AM - Transition therapy per the above (5) Leukocytosis: Plan: WBC 17 on arrival with Neutrophil predominence - DDX: Acute stress elevation vs. Infectious - Re-eval chest Xray following diuresing and positive pressure ventilation for possible pneumonia - Afebrile - minimal oxygenation - PCT and CRP once out of laboratory geneticist - Defer abx at this time and defer to ICU coverage - MRSA swab pending - COVID and Respiratory BIOFIRE- NEGATIVE History of Present Illness Primary Care Provider: NO PCP 57 YOM with no known significant medical history, he is accompanied by his brother who endorses that he doesn't really follow with any Physicians, and reports that he gets most of his care at [facility]. The patient was last seen here in 2008 for mediastinal lymphadenopathy and dyspnea. This was evaluated and thought to be pneumonitis. He had an ECHO in 2008 with 65% and tachycardia. No valvular abnormalities. Patient called his brother around 0800 this morning and asked him to take him to the Emergency room. Reported history of dyspnea since Wednesday. He took COVID tests at home thinking he had COVID these were reportedly negative. He told his brother he was having chest pain this morning. His brother states that he had to help him get dressed because of his difficulty breathing. He had trouble getting him to the car. In the EMD the patient had routine labs performed to include HScTNI, ECG, CXR. He was given 60mg Of Lasix, trial of BiPAP which he failed, 60mg of solumederol and nebulizer. His ECG ret urned with ST elevations with reciprocal changes and Q-waves. He was given Aspirin Heart alert was called. He was intubated, placed on nitroglycerine and taken to the process laboratory specialist. COVID and respiratory BIOFIRE was: NEGATIVE Allergies Allergy/AdvReac Type Severity Reaction Status Date / Time No Known Allergies Allergy Unknown Verified 06/30/17 12:27 Past Med/Surg History Medical History (Updated 06/15/22 @ 11:29 by CAMI Hart) Mediastinal lymphadenopathy Pneumonitis Surgical History (Updated 06/15/22 @ 11:15 by CAMI Hart) Hx of cholecystectomy Family History (Updated 06/15/22 @ 11:15 by CAMI Hart) Other Diabetes Dyslipidemia Heart disease Hypertension Social History Smoking Status: Never smoker Preferred Language: Latvian Feels Safe at Home: Yes Review of Systems Review of Systems: REVIEW OF SYSTEMS: Unable to perform secondary to intubation and sedation see HPI above Physical Exam Physical Exam: PHYSICAL EXAM: General: Intubated/Sedated Head: Normocephalic, atraumatic ENT: PERRLA Neuro: Intubated sedated and pharmacologically paralyzed- was moving all extremities prior to this Chest: equal rise and fall of the chest, no accessory muscle use, crackles throughout bilateral lung brandon, intubated 8.0 ETT at 24cm teeth Cardiac: Regular rate and rhythm, telemetry reviewed- ST, skin cool and clammy, cap refill >3 seconds, peripheral pulses +2 no JVD, no murmur, Trace edema to feet GI: NABS x 4 quadrants, soft, no rebound, guarding or tenderness :Tam to gravity draining turner colored urine Skin: will evaluate in ICU following laboratory geneticist Results & Data Results & Data ([facility]) Vital Signs (Past 12 Hours) Vital Signs Temp Pulse Pulse Resp BP Pulse Ox O2 Del Method 06/15/22 10:30 128 H 18 98 06/15/22 09:14 85 L Room Air 06/15/22 10:10 138 H 32 H 154/124 H 98 06/15/22 10:04 135 H 19 100 06/15/22 09:50 130 H 10 L 06/15/22 09:42 128 H 36 H 95 06/15/22 09:57 126 H 34 H 60 L BiPAP 06/15/22 09:53 126 H 34 H 96 BiPAP 06/15/22 09:18 36.1 C L 128 H 34 H 121/77 85 L Room Air FiO2 06/15/22 10:30 80 06/15/22 09:14 06/15/22 10:10 06/15/22 10:04 06/15/22 09:50 06/15/22 09:42 06/15/22 09:57 06/15/22 09:53 60 06/15/22 09:18 Laboratory Results Laboratory Results - last 24 hr 06/15/22 06/15/22 06/15/22 09:39 09:52 09:52 WBC 17.07 H RBC 5.66 Hgb 16.8 Hct 48.7 MCV 86.0 MCH 29.7 MCHC 34.5 RDW Std Deviation 37.2 RDW Coeff of Kiya 11.9 Plt Count 354 MPV 10.5 Immature Gran % (Auto) 0.9 Neut % (Auto) 85.8 Lymph % (Auto) 7.6 [place] % (Auto) 5.2 Eos % (Auto) 0.1 Baso % (Auto) 0.4 Neut # (Auto) 14.66 H Lymph # (Auto) 1.29 [place] # (Auto) 0.89 H Eos # (Auto) 0.01 Baso # (Auto) 0.06 Immature Gran # (Auto) 0.16 H PT INR APTT PTT Ratio D-Dimer Sodium 132 L Potassium 4.1 Chloride 92 L Carbon Dioxide 26 Anion Gap 14 H BUN 19 Creatinine 1.04 Est Cr Clr Drug Dosing 87.6 Est GFR ( Amer) 91.3 Est GFR (Non-Af Amer) 78.8 BUN/Creatinine Ratio 18.3 Glucose 397 H* Calcium 9.6 Magnesium 1.8 Total Bilirubin 1.5 H AST 24 ALT 57 H Alkaline Phosphatase 142 H Troponin I High Sens 3598.8 H* B-Natriuretic Peptide Total Protein 8.0 Albumin 4.1 Globulin 3.9 Albumin/Globulin Ratio 1.1 Adenovirus (PCR) Pending B. pertussis DNA (PCR) Pending B.parapertussis DNA PCR Pending C. pneumoniae DNA (PCR) Pending Coronavirus OC43 (PCR) Pending Coronavirus HKU1 (PCR) Pending Coronavirus 229E (PCR) Pending SARS-CoV-2 (PCR) Pending Coronavirus NL63 (PCR) Pending Human Metapneumovir PCR Pending Influenza Type B (PCR) Pending M. pneumoniae (PCR) Pending Parainfluenza 1 (PCR) Pending Parainfluenza 2 (PCR) Pending Parainfluenza 3 (PCR) Pending Parainfluenza 4 (PCR) Pending RSV (PCR) Pending Entero/Rhino (PCR) Pending 06/15/22 06/15/22 09:52 10:05 WBC RBC Hgb Hct MCV MCH MCHC RDW Std Deviation RDW Coeff of Kiya Plt Count MPV Immature Gran % (Auto) Neut % (Auto) Lymph % (Auto) [place] % (Auto) Eos % (Auto) Baso % (Auto) Neut # (Auto) Lymph # (Auto) [place] # (Auto) Eos # (Auto) Baso # (Auto) Immature Gran # (Auto) PT 11.2 INR 1.1 APTT 25.6 PTT Ratio 0.9 D-Dimer 2930 H* Sodium Potassium Chloride Carbon Dioxide Anion Gap BUN Creatinine Est Cr Clr Drug Dosing Est GFR ( Amer) Est GFR (Non-Af Amer) BUN/Creatinine Ratio Glucose Calcium Magnesium Total Bilirubin AST ALT Alkaline Phosphatase Troponin I High Sens B-Natriuretic Peptide 884 H Total Protein Albumin Globulin Albumin/Globulin Ratio Adenovirus (PCR) B. pertussis DNA (PCR) B.parapertussis DNA PCR C. pneumoniae DNA (PCR) Coronavirus OC43 (PCR) Coronavirus HKU1 (PCR) Coronavirus 229E (PCR) SARS-CoV-2 (PCR) Coronavirus NL63 (PCR) Human Metapneumovir PCR Influenza Type B (PCR) M. pneumoniae (PCR) Parainfluenza 1 (PCR) Parainfluenza 2 (PCR) Parainfluenza 3 (PCR) Parainfluenza 4 (PCR) RSV (PCR) Entero/Rhino (PCR) Diagnostic Findings Chest X-Ray 06/15/22 09:35 XR chest 1V portable HISTORY: Dyspnea COMPARISON: Chest 07/30/2009. FINDINGS: The cardiac silhouette is borderline enlarged. No pneumothorax. No pleural effusions. There is perihilar interstitial/vascular thickening with bilateral lower lobe airspace opacities. IMPRESSION: Perihilar interstitial/vascular thickening with bilateral lower lobe airspace opacity. This could represent pulmonary edema or an atypical pneumonia. ACT 112: Negative or not required by law. Electronically signed by: True Green M.D. 06/15/2022 9:59 AM Chest X-Ray 06/15/22 10:36 XR chest 1V portable HISTORY: post intubation COMPARISON: Chest 06/15/2022. FINDINGS: Endotracheal tube terminates 6 cm from the jose a. This could be advanced by approximately 2 to 3 cm. No definite pneumothorax. No pleural fusions. The heart is mildly enlarged. Perihilar interstitial/vascular thickening and airspace opacities have progressed. IMPRESSION: 1. The endotracheal tube terminates 6 cm from the jose a. This could be advanced by approximately 2 to 3 cm. 2. Interval progression of the perihilar airspace opacities and interstitial thickening. This suggests worsening pulmonary edema. A pneumonia could also have a similar appearance. ACT 112: Negative or not required by law. Electronically signed by: True Green M.D. 06/15/2022 10:43 AM Medications Administered Nitroglycerin/Dextrose (Nitroglycerin/D5w 100 Mcg/Ml) 250 mls @ 6 mls/hr IV .Q24H [facility]; Protocol Stop: 07/15/22 10:14 Last Titration: 06/15/22 10:17 Dose: 10 mcg/min, 6 mls/hr Documented By: Admin: 06/15/22 10:14 Dose: 5 mcg/min, 3 mls/hr Documented By: HS Co-signed By: MABEL Propofol (Diprivan) 1,000 mg in 100 mls @ 10.848 mls/hr IV .Q9H14M [facility]; Protocol Stop: 06/18/22 10:44 Last Admin: 06/15/22 10:35 Dose: 20 mcg/kg/min, 10.8 mls/hr Documented By: HS Co-signed By: ELMO Discontinued Medications Albuterol (Albut/Ipratrop 3mg/0.5mg Neb 3 Ml Vial) 12 ml NEB ONE ONE; Protocol Stop: 06/15/22 09:36 Last Admin: 06/15/22 09:51 Dose: 12 ml Documented By: JAVIER Aspirin (Aspirin Chew 324 Mg) 324 mg PO NOW STA Stop: 06/15/22 09:49 Last Admin: 06/15/22 09:54 Dose: 324 mg Documented By: HS Aspirin (Aspirin Chew 324 Mg) Confirm Administered Dose 324 mg .ROUTE .STK-MED ONE Stop: 06/15/22 09:50 Last Admin: 06/15/22 10:15 Dose: Not Given Documented By: HS Etomidate (Etomidate 2 Mg/Ml 20 Ml Vial) 25 mg IV NOW ONE Stop: 06/15/22 10:46 Last Admin: 06/15/22 10:32 Dose: 25 mg Documented By: ELMO Furosemide (Furosemide 40 Mg/4 Ml Vial) Confirm Administered Dose 80 mg IV .STK- MED ONE Stop: 06/15/22 09:54 Last Admin: 06/15/22 10:15 Dose: Not Given Documented By: ROSY Furosemide (Furosemide 40 Mg/4 Ml Vial) 60 mg IV NOW STA Stop: 06/15/22 09:54 Last Admin: 06/15/22 09:54 Dose: 60 mg Documented By: HS Hydralazine HCl (Hydralazine Hcl 20 Mg/Ml Vial) Confirm Administered Dose 20 mg .ROUTE .STK-MED ONE Stop: 06/15/22 10:09 Last Increment: 06/15/22 10:08 Dose: 10 mg Documented By: ELMO Lorazepam (Lorazepam 2 Mg/1 Ml Vial) 0.5 mg IV NOW STA; Protocol Stop: 06/15/22 10:07 Last Admin: 06/15/22 10:15 Dose: 0.5 mg Documented By: HS Lorazepam (Lorazepam 2 Mg/1 Ml Vial) Confirm Administered Dose 1 mg .ROUTE .STK- MED ONE Stop: 06/15/22 10:09 Last Admin: 06/15/22 10:38 Dose: Not Given Documented By: ELMO Methylprednisolone (Methylprednisolone 125 Mg/2 Ml Vial) 60 mg IV NOW STA Stop: 06/15/22 09:36 Last Admin: 06/15/22 09:54 Dose: 60 mg Documented By: ROSY Miscellaneous (Rapid Sequence Induction Bag) Confirm Administered Dose 1 each .ROUTE .STK-MED ONE Stop: 06/15/22 10:10 Last Admin: 06/15/22 10:46 Dose: Not Given Documented By: ELMO Nitroglycerin (Nitroglycerin 2% Ointment 30gm Tube) 1 inch EXT NOW STA Stop: 06/15/22 09:49 Last Admin: 06/15/22 09:54 Dose: 1 inch Documented By: ROSY Nitroglycerin (Nitroglycerin 2% Ointment 30gm Tube) Confirm Administered Dose 18 inch .ROUTE .STK-MED ONE Stop: 06/15/22 09:50 Last Admin: 06/15/22 10:15 Dose: 18 inch Documented By: ROSY Nitroglycerin/Dextrose (Nitroglycerin/D5w 100 Mcg/Ml Btl) Confirm Administered Dose 25 mg .ROUTE .STK-MED ONE Stop: 06/15/22 10:10 Last Admin: 06/15/22 10:37 Dose: Not Given Documented By: ELMO Propofol (Propofol Iv Emulsion 10 Mg/Ml 100 Ml Vial) Confirm Administered Dose 1,000 mg IV .STK-MED ONE Stop: 06/15/22 10:29 Last Admin: 06/15/22 10:36 Dose: 1,000 mg Documented By: ELMO Co-signed By: ROSY Succinylcholine Chloride (Succinylcholine Chloride 20 Mg/Ml 10 Ml Vial) 135 mg IV NOW ONE Stop: 06/15/22 10:46 Last Admin: 06/15/22 10:32 Dose: 135 mg Documented By: ELMO Vecuronium [place] (Vecuronium [place] 10 Mg Vial) Confirm Administered Dose 10 mg IV .STK-MED ONE Stop: 06/15/22 10:29 Last Admin: 06/15/22 10:37 Dose: 10 mg Documented By: ELMO Co-signed By: ROSY Vecuronium [place] (Vecuronium [place] 10 Mg Vial) 10 mg IV NOW ONE Stop: 06/15/22 10:46 Last Admin: 06/15/22 10:46 Dose: Not Given Documented By: ELMO ECG Additional Comments: Sinus tachycardia with 1st degree A-V block Possible Left atrial enlargement Inferior infarct (cited on or before 15-JUN-2022) Anterior infarct (cited on or before 15-JUN-2022) ACUTE HI / STEMI Consider right ventricular involvement in acute inferior infarct Abnormal ECG Code Status & VTE Plan Code Status CODE: FULL VTE: SCDS, chemoprophy deferred to following laboratory geneticist VTE Prophylaxis Plan VTE Prophylaxis will be ordered: Yes Supervising Physician Co-Signing Physician Notes Discussed case with nurse practitioner, agree with note above. Patient was not available for evaluation at the time of this dictation. Patient presented with chest pain, found to be in florid heart failure with STEMI. Emergently intubated, taken immediately to cardiac catheterization. I agree with his note as noted above. Further work-up per commercial title examiner service and cardiology, consideration to transfer depending on results of cath and immediate hospital course. PG Care Time/CCT Total # of Minutes Spent Total Time Spent with Patient: Total time spent is greater than 50% in coordination of care (as documented) at patient's floor/unit and/or counseling patient: Coding Level of Care Code 15513 Initial Inpt Care Lvl 3 Diagnoses STEMI (ST elevation myocardial infarction) I21.3 Respiratory failure J96.90 Pulmonary edema J81.1 Hyperglycemia, unspecified R73.9 Leukocytosis D72.829
[2022-06-15 11:50] LABS: Adenovirus PCR Not Detected (NotDetected); Bordetella parapertussis PCR Not Detected (NotDetected); Bordetella pertussis PCR Not Detected (NotDetected); Chlamydia pneumoniae PCR Not Detected (NotDetected); Coronavirus 229E PCR Not Detected (NotDetected); Coronavirus CoV-2 (COVID19)PCR Not Detected (NotDetected); Coronavirus HKU1 PCR Not Detected (NotDetected); Coronavirus NL63 PCR Not Detected (NotDetected); Coronavirus OC43PCR Not Detected (NotDetected); Human Metapneumovirus PCR Not Detected (NotDetected); Influenza A PCR Not Detected (NotDetected); Influenza B PCR Not Detected (NotDetected); Mycoplasma pneumoniae PCR Not Detected (NotDetected); Parainfluenza Virus 1 PCR Not Detected (NotDetected); Parainfluenza Virus 2 PCR Not Detected (NotDetected); Parainfluenza Virus 3 PCR Not Detected (NotDetected); Parainfluenza Virus 4 PCR Not Detected (NotDetected); Respiratory Syncytial VirusPCR Not Detected (NotDetected); Rhinovirus/Enterovirus PCR Not Detected (NotDetected)
[2022-06-15] MEDS ORDERED: ADENOSINE IV SOLN 3 MG/ML 2 ML VIAL IV ONE (11:56)
[2022-06-15] MEDS ORDERED: TICAGRELOR 90 MG TAB ONE (13:13)
[2022-06-15] MEDS ORDERED: ICU PROTOCOL FOR HYPERGLYCEMIA PRN ×2 (13:49→14:08)
[2022-06-15] MEDS ORDERED: EPTIFIBATIDE 75 MG/100 ML VIAL IV SCH (14:00)
--- NOTE | 2022-06-15 14:04 | Post Operative Brief Note ---
Cardiology Brief Post Op Date of Surgery June 15, 2022 Pre & Post Diagnosis STEMI Procedure Cardiac cath PCI to RCA PCI to LAD Machine I Cutter Anastacio Black MD Cherry Cutter [employer]ers Estimated Blood Loss 28 Findings See Below 100% late-mid RCA 95% proximal LAD KIRSTEN 2 flow 70% large OM2 PCI to RCA with 4 overlapping SAMANTHA. No-reflow despite numerous vasodilators, angioplasty, aspiration. Final result KIRSTEN 1 flow PCI to LAD with single SAMANTHA. KIRSTEN 3 flow Drains Other Anesthesia Type RN Sedation Complications none Disposition Accompanied Patient To Recovery: Yes Disposition: Surgical ICU Overlapping Procedure I was present for: the critical portions of procedure. I was immediately available: during the entire case. Back up surgeon: was not required during procedure.
[2022-06-15] MEDS ORDERED: fentaNYL citrate 2,500 MCG/250 ML BAG IV ONE (14:05)
[2022-06-15] MEDS ORDERED: fentaNYL BOLUS from BAG IV PRN (14:06)
[2022-06-15] MEDS ORDERED: DEXTROSE 50% 50 ML SYRINGE IV PRN (14:08)
[2022-06-15] MEDS ORDERED: GLUCAGON FOR INJ 1 MG VIAL SQ PRN (14:08)
[2022-06-15] MEDS ORDERED: GLUCOSE 40% GEL 15 GM TUBE PO PRN (14:08)
[2022-06-15] MEDS ORDERED: POLYETHYLENE (MIRALAX) 17 GM PACK PO PRN (14:08)
[2022-06-15] MEDS ORDERED: ICU PROTOCOL FOR HYPERGLYCEMIA SCH (14:08)
[2022-06-15] MEDS ORDERED: CARBOHYDRATES FOR HYPOGLYCEMIA PO PRN (14:08)
[2022-06-15] MEDS ORDERED: ACETAMINOPHEN 325 MG TAB PO PRN (14:08)
[2022-06-15] MEDS ORDERED: GLUCOSE 10 TAB/TUBE PO PRN (14:08)
[2022-06-15] MEDS ORDERED: fentaNYL citrate 100 MCG/2 ML VIAL IV PRN (14:08)
--- NOTE | 2022-06-15 14:08 | Critical Care Consultation ---
Date of Consultation June 15, 2022 Assessment & Plan (1) STEMI (ST elevation myocardial infarction): (2) Pulmonary edema: (3) Acute respiratory failure with hypoxia: (4) Leukocytosis: Plan 57-year-old male was brought to the ER because of shortness of breath, was found to have STEMI. He was intubated in the ER for respiratory distress He was taken to Electromechanical Equipment Tester -- VDRF Secondary to acute hypoxic respiratory failure likely from pulmonary edema from acute STEMI Respiratory bio fire negative for COVID 19 Patient did get Lasix in the ED and he diuresed well Continue with ventilatory support Keep RASS -1 Daily sedation holidays and SBT's Chlorhexidine mouthwash -- STEMI PCI s/p SAMANTHA 4 in RCA, 1 SAMANTHA in LAD -- Diabetes type 2 HbA1c 12.6 Not on any medications at home Insulin as per ICU protocol --Leukocytosis Likely reactive to STEMI Continue to monitor --Prophylaxis VTE: IPC GI: Pantoprazole Lines: Right femoral sheath Diet: N.p.o. Plan: AB.35/39/86 on PEEP of 10, 50% FiO2 Try to go down on FiO2. I increased the PEEP to 10 given the pulmonary edema picture that we have. We will try to gradually go down on the PEEP. Patient made good amount of urine. We will consider giving another Lasix if there is no good urine output. Start Brilinta and aspirin tomorrow. Will consider low-dose beta-pedro and DONAVAN inhibitor tomorrow as well I have personally spent 55 minutes of critical care time in the direct management of this patient. This is a life/limb threatening event. This includes time spent evaluating patient, direct bedside care, chart review, placing orders, interpretation of diagnostic studies, discussion with consultants, patient, and family members, as well as other required patient management activities. This time is exclusive of all separately billable procedures, and teaching time and separate from and in addition to any other critical care service time. Please note the above document was generated using voice recognition software. It may contain grammatical, syntax or spelling errors. History of Present Illness Attending Physician: Anastacio Black MD History of Present Illness 57-year-old male presented to the hospital with complaints of chest pain or shortness of breath He was found to have STEMI and was planning to go to the Electromechanical Equipment Tester. He got really hypoxic and was intubated in the ED. Patient comes to the ICU postcardiac cath The time of examination patient was on ventilator. He was breathing over the vent. His systolic blood pressure was 103 with diastolic in the 70s. He was on propofol 30 and Integrilin Sinus rhythm Signout was obtained from Dr. Black and Lj Rudolph Further history obtained from previous records. Allergies Allergy/AdvReac Type Severity Reaction Status Date / Time No Known Allergies Allergy Unknown Verified 06/30/17 12:27 Patient History Medical History (Updated 06/15/22 @ 14:45 by Martin Luis MD) Mediastinal lymphadenopathy Pneumonitis Surgical History (Updated 06/15/22 @ 11:15 by CAMI Hart) Hx of cholecystectomy Family History (Updated 06/15/22 @ 11:15 by CAMI Hart) Other Diabetes Dyslipidemia Heart disease Hypertension Social History Smoking Status: Never smoker Preferred Language: Faroese Feels Safe at Home: Yes Review of Systems Review of Systems: Unobtainable due to endotracheal tube Physical Exam Physical Exam: Constitutional: No acute distress HEENT: PERRLA Respiratory system: Decreased air entry bilaterally, no wheeze, no rhonchi, positive crackles bilateral lower lobes CVS: S1-S2 positive, no murmurs or gallops Abdomen: Soft, nontender, nondistended, positive bowel sounds x4 Extremities: +2 pulses bilaterally radialis/ dorsalis pedis, no cyanosis, +1 pitting edema bilateral lower extremity, cold extremity Neuro: Intubated and sedated Psych: Unable to assess G/U: Positive Tam Skin: no rashes, warm and dry Lymphatic: no cervical or axillary lymphadenopathy Results & Data Results & Data ([facility]) Vital Signs (Past 12 Hours) Vital Signs Temp Pulse Pulse Resp BP BP Pulse Ox 06/15/22 13:40 124 H 155/102 H 06/15/22 11:00 06/15/22 10:20 144 H 40 H 154/128 H 94 06/15/22 10:10 139 H 44 H 154/124 H 100 06/15/22 10:10 135 H 44 H 173/125 H 98 06/15/22 10:08 139 H 42 H 162/131 H 96 06/15/22 10:18 144 H 40 H 156/133 H 97 06/15/22 10:30 128 H 18 98 06/15/22 09:14 85 L 06/15/22 10:10 138 H 32 H 154/124 H 98 06/15/22 10:04 135 H 19 100 06/15/22 09:50 130 H 10 L 06/15/22 09:42 128 H 36 H 95 06/15/22 09:57 126 H 34 H 60 L 06/15/22 09:53 126 H 34 H 96 06/15/22 09:18 36.1 C L 128 H 34 H 121/77 85 L O2 Del Method FiO2 06/15/22 13:40 06/15/22 11:00 Mechanical Vent 06/15/22 10:20 06/15/22 10:10 06/15/22 10:10 06/15/22 10:08 06/15/22 10:18 06/15/22 10:30 80 06/15/22 09:14 Room Air 06/15/22 10:10 06/15/22 10:04 06/15/22 09:50 06/15/22 09:42 06/15/22 09:57 BiPAP 06/15/22 09:53 BiPAP 60 06/15/22 09:18 Room Air Laboratory Results 06/15/22 09:52 06/15/22 09:52 Coding Level of Care Code Critical Care 1st 30-74 mins Diagnoses STEMI (ST elevation myocardial infarction) I21.3 Pulmonary edema J81.1 Acute respiratory failure with hypoxia J96.01 Leukocytosis D72.829 Time Spent (min) 55
[2022-06-15] MEDS ORDERED: fentaNYL citrate 2,500 MCG/250 ML BAG IV SCH (14:15)
[2022-06-15 14:50] LABS: iSTAT Allen Test Pass; iSTAT Art Bld Gas pCO2 Correct 38 mmHg (35-46); iSTAT Art Bld Gas pH Corrected 7.356 (7.35-7.45); iSTAT Arterial Blood Gas HCO3 21 meg/L (19-24); iSTAT Arterial Blood Gas pCO2 39 mmHg (35-46); iSTAT Arterial Blood Gas pH 7.35 (7.35-7.45); iSTAT Arterial Blood Gas pO2 86 mmHg (80-95); iSTAT Arterial Blood Gas pO2 C 85; iSTAT Carbon Dioxide 23 mmol/L (24-31); iSTAT FiO2 50 %; iSTAT Hematocrit 40 % (42-52); iSTAT Hemoglobin 13.6 g/dl (14.0-18.0); iSTAT Potassium 5.2 mmol/L (3.3-5.0); iSTAT Site L Radial; iSTAT Sodium 128 mmol/L (135-144)
[2022-06-15 15:31] LABS: C Reactive Protein 14.94 mg/dl (0-0.5)
[2022-06-15] MEDS: EPTIFIBATIDE 75 MG/100 ML VIAL IV SCH ×2 (15:39→22:35)
[2022-06-15 15:53] LABS: Troponin I High Sensitivity 7199.8 pg/ml (0-20)
--- NOTE | 2022-06-15 15:56 | XRay Report ---
XR chest 1V portable CLINICAL HISTORY: ETT Placement, OGT Placement. COMPARISON STUDY: 06/15/2022 TECHNIQUE: 1 view of the chest FINDINGS: Single frontal view of the chest demonstrates the cardiomediastinal silhouette to be within normal li mits. There has been interval placement of endotracheal tube with its tip approximately 4.5 cm above the jose a. NG tube extends below the edge of film stomach. There is again evidence for diffuse interstitial and alveolar edema characteristic of congestive hear t failure. Findings have slightly improved since the previous study. There is no evidence for pleural effusion. There is no evidence for vascular congestion. There is no acute osseous pathology. IMPRESSION: 1. Status post repositioning of endotracheal tube and placement of NG tube. 2. Slight improvement of congestive heart failure. ACT 112: Negative or not required by law. Electronically signed by: Bryan Sweeney M.D. 06/15/2022 3:55 PM
[2022-06-15] MEDS ORDERED: INSULIN REGULAR 250 UNITS in SODIUM CHLORIDE 0.9% 247.5 ML IV SCH (16:00)
[2022-06-15] MEDS ORDERED: NovoLIN-R BOLUS FROM BAG IV ONE (16:00)
[2022-06-15] MEDS: INSULIN ASPART PER UNIT SC SCH ×2 (16:31→20:38)
[2022-06-15] MEDS: PANTOprazole 40 MG in SYRINGE 0 ML IV SCH (16:31)
[2022-06-15 17:01] LABS: BUN Creatinine Ratio 22.2 (10-20); Calcium 8.4 mg/dl (8.5-10.1); Creatinine Clr Calc Pharmacy 84.6 ml/min; Est GFR (African American) 87.2 ml/min; Est GFR (Non-African American) 75.3 ml/min; Potassium 5.2 mmol/L (3.5-5.1)
--- NOTE | 2022-06-15 17:41 | XCELERA ---
[id number] \\[id number]
[2022-06-15 18:04] LABS: Appearance Urine Clear (Clear); Bacteria Urine Automated Negative (Negative); Bilirubin Urine Negative (Negative); Blood Urine Negative (Negative); Color Urine Dark Yellow; Epithelial Cell Urine Auto >30 /lpf (0-5); Glucose Urine UA 3+ (Negative); Ketones Urine 1+ (Negative); Leukocyte Esterase Urine Negative (Negative); Nitrite Urine Negative (Negative); Protein Urine 2+ (Negative); RBC Urine Automated 0-4 /hpf (0-4); Specific Gravity Urine 1.044 (1.000-1.030); Urobilinogen Urine Negative (Negative); pH Urine 5.5 (4.5-7.5)
[2022-06-15] MEDS: ICU ELECTROLYTE REPLACEMENT PROTOCOL SCH (18:16)
[2022-06-15 20:35] LABS: BUN Creatinine Ratio 20.5 (10-20); Calcium 6.6 mg/dl (8.5-10.1); Creatinine Clr Calc Pharmacy 81.6 ml/min; Est GFR (African American) 83.5 ml/min; Potassium 4.1 mmol/L (3.5-5.1)
[2022-06-15] MEDS: SENNA 8.6 MG TAB PO SCH (20:39)
--- NOTE | 2022-06-15 21:00 | Cardiac Catheterization ---
[facility] Data: Financial Developer Cardiac Status Clinical evaluation leading to the procedure CAD Presenation: STEMI Anginal Classification: CCS IV Diagnostic Physicians Name: Anastacio Black MD Closure Device Recommendations: PCI without planned CABG Cardiac Cath Procedure Full Procedure Date June 15, 2022 Pre-Procedure Diagnosis Pre-Procedure Diagnosis: STEMI AUC Score AUC Score: 9 Post-Procedure Diagnosis Post-Procedure Diagnosis: Severe CAD, Successful PCI and Elevated Intracardiac Pressures Procedure(s) Performed Procedure(s) Performed: Coronary Angiography, Left Heart Cath, Drug Eluting Stent and IVUS Attendant [employer] Anastacio Black MD Visual Merchandise Manager(s) Showers Estimated Blood Loss Estimated Blood Loss: 30 Medication(s) Medication(s): Adenosine, Fentanyl, Heparin, Integrilin, Lidocaine 1%, Nicardipine, Nitroglycerin, Norepinephrine and Versed Summary of Findings Indication: STEMI/Heart Alert Access: 6 Fr right radial artery, 7 Fr right CFV Catheters: [place], JR4 guide, EBU 3.5 guide, pigtail Findings: LM -Short, no significant disease LAD -medium caliber, 95% proximal stenosis. Remainder of vessel without significant disease but KIRSTEN II distal flow. Circumflex -medium caliber, diffuse 30 to 40% proximal to mid disease. 70% proximal disease in OM 2 RCA -large caliber, dominant, mild diffuse mid segment disease before 100% latemid occlusion. -- PCI of RCA-- Antithrombotic therapy: Heparin, Integrilin, ticagrelor Procedure: RCA cannulated with JR4 guide Finance Advisor 50 wire passed across lesion into distal vessel Mid to distal RCA dilated with 2.5 compliant balloon Post dilation minimal distal flow PDA wired with additional long whisper wire Distal RCA into PDA dilated with 2.0 balloon and IC vasodilators administered via OTW into distal vessel [place] IVUS catheter placed into PDA to assess extent of atherosclerotic plaque/thrombus, calcification and for vessel sizing IVUS pullback revealed severe diffuse atherosclerosis with heavy thrombus extending from PDA back into mid segment. Remainder of mid/proximal RCA there was mild to moderate diffuse disease. IC/IV Integrilin administered Distal RCA into PDA stented with 2.5 x 30 mm [place] drug-eluting stent Mid to distal RCA stented with 3.0 x 38 mm [place] drug-eluting stent overlapping with proximal aspect of initial stent Post stent deployment still with slow/no reflow Additional 2.25 x 12 mm [place] SAMANTHA placed from proximal PDA to mid PDA overlapping with initial stent Fourth SAMANTHA (3.5 x 12 mm [place]) placed in mid RCA overlapping proximal aspect of prior stens Additional IC vasodilators administered RCA stents postdilated with 3.5 NC balloon IC adenosine administered but no significant improvement in distal flow Repeat IVUS pullback revealed no apparent edge complications minimal intraluminal thrombus and well apposed stents. Stent underexpanded distal RCA Stents in RCA postdilated again with 4.0 NC balloon Mid to distal PDA gently ballooned with 2.0/2.5 balloon Attempt made at aspiration thrombectomy but unable to pass aspiration catheter across stents Additional IC vasodilators, including adenosine administered via OTW balloon to distal PDA Post procedure stents well expanded with minimal residual stenosis but only KIRSTEN 1 flow. PCI of LAD Preprocedure echo had revealed LAD distribution wall motion abnormality. Initial angiography showed KIRSTEN II flow in LAD. Decision made to proceed with PCI of nonculprit LAD in same setting. Left main cannulated with EBU 3.5 guide Finance Advisor 50 wire navigated across proximal LAD stenosis in the distal vessel Proximal LAD dilated with 2.5 balloon IVUS pullback from mid LAD revealed diffuse proximal to mid disease, no significant left main disease. Minimally calcified. Proximal to mid LAD stent with 3.0 x 26 mm [place] SAMANTHA Stent postdilated with 3.5 NC Post procedure stent well expanded with no apparent complications. KIRSTEN-3 flow in LAD. Procedure courseon arrival to Financial Developer had been electively intubated in the ED due to respiratory failure in the setting of acute heart failure. Had received bolus IV Lasix in ED. Was on nitroglycerin infusion as well as propofol sedation. Borderline hypotensive initially requiring brief low-dose norepinephrine weaned off during procedure. Electrically stable. Urine output of 900 mL during procedure. LVEDP -22 (post PCI) Arterial Closure: TR band Summary: 1. Inferior STEMI (latepresenting) 2. 100% latemid RCA occlusion 3. Severe multivessel nonculprit coronary artery disease 95% proximal LAD with KIRSTEN II distal flow 70% diffuse proximal OM1 4. Elevated left-sided filling pressures (LVEDP 22) 5. PCI of mid to distal RCA into PDA with 4 overlapping SAMANTHA (3.5 x 12, 3.0 x 38, 2.5 x 30, 2.25 x 12 [place]; postdilated proximally with 4.0 balloon). -Procedure complicated by no/slow reflow. Final result KIRSTEN I flow 6. Successful PCI of proximal to mid LAD with single SAMANTHA (3.0 x 26 mm [place]; postdilated with 3.5 NC). Recommendations: Admit to ICU for continued monitoring Continue Integrilin for 18 hours Loaded with ticagrelor 180 mg in Financial Developer Continue dual-antiplatelet therapy for at least 1 year. Trend troponins until peak, Check Echo Additional diuresis as needed High-dose statin Medical management of residual circumflex disease. Hemodynamics Rest Ao:: 122/88/108 Final Ao: 95/71/82 LV: 96/22 Recommendations Recommendations: PCI without planned CABG Specimens Specimens: None Radiation Exposure (mGy) 9890 Contrast (mls) 190 Anesthesia Moderate 1620-6798 Procedural Complication(s) None Disposition ICU I attest to the content of the Intraoperative Record and any orders documented therein. Any exceptions are noted below. [facility] Card Cath Procedure Codes Cardiac Catheterization Procedure 1: Cardiovascular Cath Procedures: 70780 Coronaries and LHC (+/-LV) Therapeutic Services & Ancillary Proc Procedure 1: Cardiovascular Tx and Anc Procedures: 84841 IV Ultrasound (Coronary or Graft) Procedure 2: Cardiovascular Tx and Anc Procedures: 26470 IV Ultrasound Ea addl vessel Procedure 3: Cardiovascular Tx and Anc Procedures: 94339 Insertion Central Venous Catheter Moderate Sedation Procedure 1: Sedation/Anesthesia: 86401 Mod Sedation by the same physician;Init15 Min Child Age 5 & Up Procedure 2: Sedation/Anesthesia: 07062 Mod Sedation by the same physician; Ea [id number] Minutes Stenting Procedure 1: Cardiovascular Stent Procedures: 24524 Perc transluminal revascularization of acute sub/total occl, aMI Procedure 2: Cardiovascular Stent Procedures: 57868 Ea addl branch of a major coronary artery PG Care Time/CCT Total # of Minutes Spent Total Time Spent with Patient: Total time spent is greater than 50% in coordination of care (as documented) at patient's floor/unit and/or counseling patient:
--- NOTE | 2022-06-15 21:43 | Cardiology Consultation ---
Date of Consultation June 15, 2022 Assessment & Plan (1) Acute PR: Presentation consistent with inferoposterior STEMI complicated by acute heart failure. Recommend proceeding with emergent cardiac catheterization and likely primary PCI. Discussed procedure with patient prior to intubation and with his family. Further recommendations pending findings of coronary angiography. History of Present Illness Attending Physician: Anastacio Black MD History of Present Illness 57-year-old man here with acute heart failure and ECG consistent with Acute PR. Patient seen emergently in the ED after heart alert activated during initial work-up. No prior cardiac history. Patient has a history of diabetes previously on insulin. Denies other active medical problems. Echo in 2008 showed hyperdynamic LV with no significant valve pathology. Family history of CAD/vascular disease involving brother. Presented to ED with >48 hrs of new, gradually worsening shortness of breath. Reports intermittent mild chest tightness. No prior similar symptoms. Contacted his brother around 8AM today due to progressive symptoms. On arrival to ED ~930, hypertensive, tachycardic, tachypneic. Chest Xray with florid pulmonary edema. Placed on bipap, give IV lasix 60mg x1 and nitro patch. ECG showed sinus tachycardia with inferior q-waves and ST elevations. Heart alert activated and on arrival, remained hypertensive, in respiratory distress on Bipap. Denied any real chest pain. Given IV hydralazine and started on nitroglycerin drip without improvement. Decision to electively intubate. Social History: non-smoker. previously worked construction. Allergies Allergy/AdvReac Type Severity Reaction Status Date / Time No Known Allergies Allergy Unknown Verified 06/30/17 12:27 Patient History Medical History Mediastinal lymphadenopathy Pneumonitis Surgical History (Updated 06/15/22 @ 11:15 by CAMI Hart) Hx of cholecystectomy Family History (Updated 06/15/22 @ 11:15 by CAMI Hart) Other Diabetes Dyslipidemia Heart disease Hypertension Social History Smoking Status: Unknown if ever smoked Preferred Language: Chinese Operations Support Representative Required: No Current Living Situation: Alone Current Living Situation Comment: per brother Feels Safe at Home: Yes Review of Systems Review of Systems: Not obtained in the setting of emergent situation Physical Exam Physical Exam: General: distress. tachypneic, labored breathing. unable to speak in sentences. HEENT: Sclerae anicteric Lungs: diffuse crakles Cardiac: tachycardic, regular Vascular: 1+ radial Abdomen: Soft, nontender Extremities: Well perfused, no peripheral edema Neuro: Nonfocal Psych: Alert oriented Results & Data ([place]) Vital Signs (Past 12 Hours) Vital Signs Temp Pulse Pulse Resp BP BP Pulse Ox 06/15/22 19:35 102 H 19 97 06/15/22 19:34 99.9 F H 99 H 18 84/70 L 97 06/15/22 19:10 99.9 F H 99 H 18 97 06/15/22 19:00 99.9 F H 98 H 18 96 06/15/22 19:00 84/70 L 06/15/22 18:50 99.9 F H 105 H 18 96 06/15/22 18:40 99.9 F H 110 H 17 97 06/15/22 18:30 99.7 F H 110 H 18 96 06/15/22 18:20 99.7 F H 110 H 18 97 06/15/22 18:10 99.5 F 112 H 21 97 06/15/22 18:00 99.5 F 108 H 19 97 06/15/22 18:00 112/86 06/15/22 17:50 99.3 F 107 H 17 97 06/15/22 17:40 99.3 F 109 H 18 97 06/15/22 17:30 99.1 F 104 H 18 97 06/15/22 17:20 99.1 F 103 H 21 99 06/15/22 17:10 99.0 F 103 H 18 99 06/15/22 17:00 98.8 F 102 H 17 99 06/15/22 17:00 101/76 06/15/22 16:50 98.8 F 101 H 19 97 06/15/22 16:40 98.6 F 104 H 19 95 06/15/22 16:30 98.4 F 103 H 17 94 06/15/22 16:20 98.4 F 106 H 19 93 06/15/22 16:00 06/15/22 17:24 103 H 21 99 06/15/22 16:14 88/72 L 06/15/22 16:14 98.4 F 102 H 20 95 06/15/22 16:10 98.4 F 96 H 19 96 06/15/22 16:07 82/56 L 06/15/22 16:07 98.4 F 95 H 19 96 06/15/22 16:05 98.4 F 91 H 19 97 06/15/22 16:00 98.4 F 90 17 97 06/15/22 15:50 98.2 F 91 H 20 97 06/15/22 15:40 98.2 F 88 18 97 06/15/22 15:30 98.1 F 93 H 17 97 06/15/22 15:10 101/74 06/15/22 15:10 98.1 F 102 H 19 92 06/15/22 15:09 98.1 F 102 H 14 94 06/15/22 15:09 88/69 L 06/15/22 15:05 98.1 F 101 H 18 95 06/15/22 15:00 98.1 F 101 H 17 94 06/15/22 15:00 84/67 L 06/15/22 14:50 98.1 F 100 H 15 97 06/15/22 16:00 102 H 06/15/22 15:56 06/15/22 15:56 97.5 F L 105 H 20 98 06/15/22 13:51 112 H 21 99 06/15/22 13:40 124 H 155/102 H 06/15/22 11:00 06/15/22 10:20 144 H 40 H 154/128 H 94 06/15/22 10:10 139 H 44 H 154/124 H 100 06/15/22 10:10 135 H 44 H 173/125 H 98 06/15/22 10:08 139 H 42 H 162/131 H 96 06/15/22 10:18 144 H 40 H 156/133 H 97 06/15/22 10:30 128 H 18 98 06/15/22 10:10 138 H 32 H 154/124 H 98 06/15/22 10:04 135 H 19 100 06/15/22 09:50 130 H 10 L 06/15/22 09:42 128 H 36 H 95 06/15/22 09:57 126 H 34 H 60 L 06/15/22 09:53 126 H 34 H 96 O2 Del Method FiO2 06/15/22 19:35 35 06/15/22 19:34 Mechanical Vent 06/15/22 19:10 06/15/22 19:00 06/15/22 19:00 06/15/22 18:50 06/15/22 18:40 06/15/22 18:30 06/15/22 18:20 06/15/22 18:10 06/15/22 18:00 06/15/22 18:00 06/15/22 17:50 06/15/22 17:40 06/15/22 17:30 06/15/22 17:20 06/15/22 17:10 06/15/22 17:00 06/15/22 17:00 06/15/22 16:50 06/15/22 16:40 06/15/22 16:30 06/15/22 16:20 06/15/22 16:00 35 06/15/22 17:24 35 06/15/22 16:14 06/15/22 16:14 06/15/22 16:10 06/15/22 16:07 06/15/22 16:07 06/15/22 16:05 06/15/22 16:00 06/15/22 15:50 06/15/22 15:40 06/15/22 15:30 06/15/22 15:10 06/15/22 15:10 06/15/22 15:09 06/15/22 15:09 06/15/22 15:05 06/15/22 15:00 06/15/22 15:00 06/15/22 14:50 06/15/22 16:00 06/15/22 15:56 Mechanical Vent 06/15/22 15:56 Mechanical Vent 06/15/22 13:51 50 06/15/22 13:40 06/15/22 11:00 Mechanical Vent 06/15/22 10:20 06/15/22 10:10 06/15/22 10:10 06/15/22 10:08 06/15/22 10:18 06/15/22 10:30 80 06/15/22 10:10 06/15/22 10:04 06/15/22 09:50 06/15/22 09:42 06/15/22 09:57 BiPAP 06/15/22 09:53 BiPAP 60 PG Care Time/CCT Total # of Minutes Spent Total Time Spent with Patient: Total time spent is greater than 50% in coordination of care (as documented) at patient's floor/unit and/or counseling patient: Coding Level of Care Code 52368 Inpt Consult Level 5 Diagnoses Acute PR I21.3 Involved coronary artery: unspecified coronary artery Myocardial infarction type: ST elevation myocardial infarction (1) Acute PR Involved coronary artery: unspecified coronary artery Myocardial infarction type: ST elevation myocardial infarction Qualified Code(s): I21.3 - ST elevation (STEMI) myocardial infarction of unspecified site
[2022-06-16] MEDS ORDERED: FUROSEMIDE INJ 20 MG/2 ML VIAL IV ONE (00:50)
[2022-06-16] MEDS ORDERED: STAT IV Infusion **Titration per Protocol STA (01:01)
[2022-06-16] MEDS: NOREPINEPHRINE/D5W 4 MG/250 ML PLCT IV SCH ×2 (01:12→11:44)
[2022-06-16 01:19] LABS: BUN Creatinine Ratio 20.9 (10-20); Calcium 7.6 mg/dl (8.5-10.1); Creatinine Clr Calc Pharmacy 68.2 ml/min; Est GFR (African American) 67.2 ml/min; Potassium 3.9 mmol/L (3.5-5.1)
[2022-06-16 04:25] LABS: iSTAT Allen Test Pass; iSTAT Art Bld Gas pCO2 Correct 38 mmHg (35-46); iSTAT Art Bld Gas pH Corrected 7.447 (7.35-7.45); iSTAT Arterial Blood Gas HCO3 26 meg/L (19-24); iSTAT Arterial Blood Gas pCO2 37 mmHg (35-46); iSTAT Arterial Blood Gas pH 7.46 (7.35-7.45); iSTAT Arterial Blood Gas pO2 59 mmHg (80-95); iSTAT Arterial Blood Gas pO2 C 62; iSTAT Carbon Dioxide 27 mmol/L (24-31); iSTAT FiO2 30 %; iSTAT Hematocrit 38 % (42-52); iSTAT Hemoglobin 12.9 g/dl (14.0-18.0); iSTAT Potassium 4.2 mmol/L (3.3-5.0); iSTAT Site L Radial; iSTAT Sodium 134 mmol/L (135-144)
[2022-06-16 05:34] LABS: Albumin Level 2.7 gm/dl (3.4-5.0); BUN Creatinine Ratio 21.8 (10-20); Bilirubin Direct 0.2 mg/dl (0-0.2); Bilirubin,Total 0.8 mg/dl (0.2-1.0); Calcium 7.3 mg/dl (8.5-10.1); Chol HDL Ratio 5.8 (0-5); Creatinine Clr Calc Pharmacy 68.7 ml/min; Est GFR (African American) 67.8 ml/min; Est GFR (Non-African American) 58.5 ml/min; Magnesium 1.5 mg/dl (1.7-2.4); Phosphorus 4.5 mg/dl (2.5-4.9); Potassium 3.4 mmol/L (3.5-5.1); Total Protein 5.1 gm/dl (6.0-8.3)
[2022-06-16] MEDS: propofoL 1,000 MG/100 ML VIAL IV SCH ×2 (05:53→09:16)
[2022-06-16] MEDS: EPTIFIBATIDE 75 MG/100 ML VIAL IV SCH (05:54)
[2022-06-16 06:11] LABS: Troponin I High Sensitivity 28639.1 pg/ml (0-20)
[2022-06-16] MEDS ORDERED: STAT IV STA (06:14)
[2022-06-16] MEDS ORDERED: MAGNESIUM SULFATE / D5W 1 GM/100 ML BAG IV ONE (06:14)
[2022-06-16] MEDS ORDERED: CALCIUM GLUCONATE 10% 1,000 MG in DEXTROSE 5% 50 ML IV ONE (06:30)
[2022-06-16] MEDS: ICU ELECTROLYTE REPLACEMENT PROTOCOL SCH ×2 (06:34→17:05)
[2022-06-16] MEDS: POTASSIUM CHLORIDE / WTR 10 MEQ/100 ML PLCT IV SCH ×2 (06:42→08:24)
[2022-06-16 07:14] LABS: Estimated Average Glucose 289 mg/dl; Hemoglobin A1C 11.7 % (4.5-5.6)
[2022-06-16] MEDS: TICAGRELOR 90 MG TAB PO SCH ×2 (07:19→21:05)
[2022-06-16] MEDS: ASPIRIN 81 MG ECTAB PO SCH (07:22)
--- NOTE | 2022-06-16 07:23 | XRay Report ---
XR chest 1V portable HISTORY: 57 years-old Male f/u acute respiratory failure COMPARISON: Chest radiograph 06/15/2022 TECHNIQUE: Portable AP view of the chest FINDINGS: The cardiac silhouette is mildly enlarged. Pulmonary vascular congestion with decreased interstitial coarsening and improving mid to lower lung zone predominant airspace opacities. Trace pleural effusio ns without pneumothorax. The bones appear grossly intact. Endotracheal tube overlies the midline, 4.7 cm superior to the jose a. Enteric tube courses below the diaphragm with distal tip outside the fiel d-of-view. IMPRESSION: 1. Lines and tubes as above. 2. Cardiomegaly with mildly improved pulmonary edema. 3. Trace pleural effusions. ACT 112: Negative or not required by law. The above report was generated using voice recognition software. It may contain grammatical, syntax o r spelling errors. Electronically signed by: Jonathan Vega M.D. 06/16/2022 7:22 AM
[2022-06-16 07:31] LABS: Basophils # (auto) 0.03 K/uL (0-0.2); Basophils % (auto) 0.1 %; Hematocrit (blood only) 38.3 % (40.1-51.0); Hemoglobin 13.4 g/dl (14.0-18.0); Immature Granulocytes # (auto) 0.16 K/uL (0.00-0.02); Immature Granulocytes % (auto) 0.7 %; Lymphocytes # (auto) 2.29 K/uL (1.2-3.4); Lymphocytes % (auto) 10.6 %; Mean Corpuscular Hemoglobin 29.8 pg (25.0-34.0); Mean Corpuscular Volume 85.1 fL (80.0-100.0); Mean Platelet Volume 10.3 fL (9.4-12.4); Monocytes # (auto) 2.19 K/uL (0.24-0.82); Monocytes % (auto) 10.1 %; Neutrophils # (auto) 17.02 K/uL (1.4-6.5); Neutrophils % (auto) 78.5 %; Platelet Count 377 K/uL (130-400); RDW Standard Deviation 37.1 fL (36.4-46.3); White Blood Count 21.69 K/ul (4.8-10.8)
--- NOTE | 2022-06-16 08:49 | Critical Care Progress Note ---
Date of Service June 16, 2022 Assessment & Plan (1) STEMI (ST elevation myocardial infarction): (2) Pulmonary edema: (3) Acute respiratory failure with hypoxia: (4) Leukocytosis: Plan 57-year-old male was brought to the ER because of shortness of breath, was found to have STEMI. He was intubated in the ER for respiratory distress He was taken to [facility] -- V[facility] Secondary to acute hypoxic respiratory failure likely from pulmonary edema from acute STEMI Respiratory bio fire negative for COVID 19 Patient did get Lasix in the ED and he diuresed well Continue with ventilatory support Keep RASS -1 Daily sedation holidays and SBT's Chlorhexidine mouthwash -- STEMI PCI s/p SAMANTHA 4 in RCA, 1 SAMANTHA in LAD Continue to trend troponin BNP 884 on 06/15/2022 Patient still has persistent elevation of ST in leads II-III-aVF. --Shock Likely from sedated being used Try to titrate off vasopressors --Electrolyte abnormalities Being replaced -- Diabetes type 2 HbA1c 12.6 Not on any medications at home Insulin as per ICU protocol --Leukocytosis Likely reactive to STEMI Continue to monitor --Prophylaxis VTE: IPC GI: Pantoprazole Lines: Right femoral sheath removed 06/16/2022, peripheral Diet: N.p.o. Plan: In/out: -544, urine output 1080 AB.46/37/59 on PEEP of 8, 30% FiO2 T-max 37.9 Chest x-ray from today shows improvement in pulmonary edema compared to yesterday. Trial of extubation to BiPAP today. Try to titrate off vasopressors to keep MAP greater than 65 Hypokalemia and hypomagnesemia being replaced I have personally spent 35 minutes of critical care time in the direct management of this patient. This is a life/limb threatening event. This includes time spent evaluating patient, direct bedside care, chart review, placing orders, interpretation of diagnostic studies, discussion with consultants, patient, and family members, as well as other required patient management activities. This time is exclusive of all separately billable procedures, and teaching time and separate from and in addition to any other critical care service time. Please note the above document was generated using voice recognition software. It may contain grammatical, syntax or spelling errors. Admission and Anticipated Discharge Date Admission Date: June 15, 2022 Subjective Patient seen and examined at bedside. No acute distress, no adverse events overnight. He was on 0.04 of Levophed at the time of examination Fentanyl 100, propofol 15 He was RASS -1, waking up and following commands. Review of Systems Review of Systems: Unobtainable due to endotracheal tube Physical Exam Physical Exam: Constitutional: No acute distress HEENT: PERRLA Respiratory system: Decreased air entry bilaterally, no wheeze, no rhonchi, positive crackles bilateral lower lobes CVS: S1-S2 positive, no murmurs or gallops Abdomen: Soft, nontender, nondistended, positive bowel sounds x4 Extremities: +2 pulses bilaterally radialis/ dorsalis pedis, no cyanosis, +1 pitting edema bilateral lower extremity, cold extremity Neuro: Intubated and sedated, following simple commands Psych: Unable to assess G/U: Positive Tam Skin: no rashes, warm and dry Lymphatic: no cervical or axillary lymphadenopathy Results & Data Results & Data ([facility]) Vital Signs (Past 12 Hours) Vital Signs Temp Pulse Resp BP Pulse Ox O2 Del Method FiO2 06/16/22 07:53 104 H 24 99 35 06/16/22 07:16 37.9 C H 104 H 15 99 06/16/22 07:16 139/86 06/16/22 07:15 37.9 C H 104 H 13 99 06/16/22 07:00 37.9 C H 94 H 18 97 06/16/22 06:46 37.9 C H 85 16 100 06/16/22 06:46 137/112 H 06/16/22 06:45 37.9 C H 84 18 100 06/16/22 06:31 37.9 C H 92 H 16 100 06/16/22 06:31 104/78 06/16/22 06:30 37.9 C H 96 H 20 100 06/16/22 06:15 37.8 C H 83 18 99 06/16/22 06:15 101/81 06/16/22 06:00 37.8 C H 82 18 99 06/16/22 06:00 93/80 L 06/16/22 05:45 37.8 C H 83 18 99 06/16/22 05:45 104/81 06/16/22 05:30 37.8 C H 82 18 99 06/16/22 05:30 103/83 06/16/22 05:15 37.8 C H 84 18 99 06/16/22 05:15 108/86 06/16/22 05:00 37.8 C H 87 18 99 06/16/22 05:00 113/81 06/16/22 04:45 37.7 C H 85 18 99 06/16/22 04:45 89/68 L 06/16/22 04:30 37.7 C H 85 18 98 06/16/22 04:30 99/81 L 06/16/22 07:18 105 H 19 99 35 06/16/22 04:00 37.6 C H 86 18 106/85 93 Mechanical Vent 40 06/16/22 04:17 86 19 94 40 06/16/22 04:00 40 06/16/22 03:00 84 16 102/79 06/16/22 02:30 37.5 C 85 15 102/82 98 06/16/22 02:25 37.5 C 85 18 98 06/16/22 02:25 102/83 06/16/22 02:20 106/80 06/16/22 02:20 37.5 C 85 18 98 06/16/22 02:15 37.5 C 85 18 98 06/16/22 02:15 102/81 06/16/22 02:10 37.5 C 85 18 98 06/16/22 02:10 106/81 06/16/22 02:05 37.5 C 85 18 97 06/16/22 02:05 102/81 06/16/22 02:00 37.5 C 85 18 97 06/16/22 02:00 104/80 06/16/22 01:55 37.5 C 86 18 97 06/16/22 01:55 103/82 06/16/22 01:50 37.5 C 86 18 97 06/16/22 01:50 104/84 06/16/22 01:45 37.5 C 87 18 97 06/16/22 01:45 98/80 L 06/16/22 01:40 93/70 L 06/16/22 01:40 37.6 C H 82 16 97 06/16/22 01:35 94/76 L 06/16/22 01:35 37.6 C H 88 18 97 06/16/22 01:30 37.6 C H 87 18 97 06/16/22 01:30 86/70 L 06/16/22 01:29 37.6 C H 87 18 97 06/16/22 01:29 83/67 L 06/16/22 01:25 75/57 L 06/16/22 01:25 37.6 C H 84 18 97 06/16/22 01:15 37.5 C 84 18 97 06/16/22 01:15 70/51 L 06/16/22 01:02 37.6 C H 85 18 97 06/16/22 01:02 74/58 L 06/16/22 01:00 37.5 C 85 18 97 06/16/22 01:00 73/57 L 06/16/22 00:45 37.6 C H 92 H 18 97 06/16/22 00:45 91/71 L 06/16/22 00:41 37.6 C H 103 H 25 H 98 06/16/22 00:41 104/63 06/16/22 00:30 37.6 C H 88 18 98 06/16/22 00:30 82/64 L 06/16/22 00:15 37.6 C H 90 18 97 06/16/22 00:15 87/68 L 06/16/22 00:00 37.6 C H 90 18 93/71 L 97 06/15/22 23:53 37.6 C H 102 H 18 109/88 97 06/15/22 23:44 37.6 C H 98 H 18 102/80 98 06/15/22 23:30 37.6 C H 94 H 18 100/82 98 06/16/22 00:00 35 06/15/22 23:00 37.6 C H 94 H 18 91/68 L 98 Mechanical Vent 35 06/15/22 22:00 37.6 C H 93 H 18 87/68 L 98 06/15/22 22:27 93 H 18 98 30 06/15/22 21:42 Mechanical Vent 35 06/15/22 21:30 91/72 L 06/15/22 21:30 37.6 C H 96 H 18 98 06/15/22 21:15 37.6 C H 95 H 18 98 06/15/22 21:00 37.6 C H 94 H 18 94/72 L 98 Laboratory Results 06/16/22 04:35 Coding Level of Care Code Critical Care 1st 30-74 mins Diagnoses STEMI (ST elevation myocardial infarction) I21.3 Pulmonary edema J81.1 Acute respiratory failure with hypoxia J96.01 Leukocytosis D72.829 Time Spent (min) 35
[2022-06-16] MEDS ORDERED: ASPIRIN 81 MG ECTAB PO SCH (09:00)
[2022-06-16 09:09] LABS: BUN Creatinine Ratio 25.4 (10-20); Calcium 8.9 mg/dl (8.5-10.1); Creatinine Clr Calc Pharmacy 65.8 ml/min; Est GFR (African American) 64.9 ml/min; Potassium 4.2 mmol/L (3.5-5.1)
--- NOTE | 2022-06-16 09:12 | Cardiology Progress Note ---
Date of Service June 16, 2022 Assessment & Plan (1) CAD (coronary artery disease): Plan: Inferior STEMIpost PCI with 4 SAMANTHA to RCA into PDA, post procedure KIRSTEN I flow post PCI to proximal LAD single with SAMANTHA Residual 70% OM disease 2. Acute heart failure/ischemic cardiomyopathyEF 20 to 25%, inferior akinesis, LAD distribution wall motion abnormality 3. Poorly controlled type 2 [id number] 11.7 4. Dyslipidemia 5. Mild SARA 6. Mild transaminitis 7. Leukocytosis Chest pain-free this morning. Troponin still trending up but appears to be peaking Off pressors, electrically stable Severe LV dysfunction on echo but normal estimated filling pressures. No significant congestion on exam No access site complications Continue DAPT with aspirin, ticagrelor Trial of low-dose beta-pedro today, start metoprolol 12.5 twice daily ARB, MRA at some point as BP allows. Continue current atorvastatin we will repeat echo in next 1 to 2 days. Likely will need LifeVest on discharge SGLT2 as an outpatient Appreciate ICU and hospital medicine care. We will follow Admission and Anticipated Discharge Date Admission Date: June 15, 2022 Subjective Extubated this morning. Currently reports feeling well. Denies any chest pain. States his breathing feels better, on BiPAP. Telemetry reviewedsinus tachycardia 100s to 110s. No events. Review of Systems Review of Systems: All systems reviewed & are unremarkable except as noted in HPI & below Physical Exam Physical Exam: General: Comfortable, BiPAP in place HEENT: Sclerae anicteric Lungs: Clear to auscultation anteriorly bilaterally Cardiac: Tachycardic, regular, no murmurs. No appreciable JVD Vascular: Right radial artery access site with no ecchymosis, hematoma. Distal pulse and sensation intact. Abdomen: Soft, nontender Extremities: Feet cool bilaterally, intact DP pulses. No edema. Neuro: Nonfocal Psych: Alert and oriented Results & Data ([facility]) Vital Signs (Past 12 Hours) Vital Signs Temp Pulse Resp BP Pulse Ox O2 Del Method FiO2 06/16/22 07:53 104 H 24 99 35 06/16/22 07:16 100.2 F H 104 H 15 99 06/16/22 07:16 139/86 06/16/22 07:15 100.2 F H 104 H 13 99 06/16/22 07:00 100.2 F H 94 H 18 97 06/16/22 06:46 100.2 F H 85 16 100 06/16/22 06:46 137/112 H 06/16/22 06:45 100.2 F H 84 18 100 06/16/22 06:31 100.2 F H 92 H 16 100 06/16/22 06:31 104/78 06/16/22 06:30 100.2 F H 96 H 20 100 06/16/22 06:15 100.0 F H 83 18 99 06/16/22 06:15 101/81 06/16/22 06:00 100.0 F H 82 18 99 06/16/22 06:00 93/80 L 06/16/22 05:45 100.0 F H 83 18 99 06/16/22 05:45 104/81 06/16/22 05:30 100.0 F H 82 18 99 06/16/22 05:30 103/83 06/16/22 05:15 100.0 F H 84 18 99 06/16/22 05:15 108/86 06/16/22 05:00 100.0 F H 87 18 99 06/16/22 05:00 113/81 06/16/22 04:45 99.9 F H 85 18 99 06/16/22 04:45 89/68 L 06/16/22 04:30 99.9 F H 85 18 98 06/16/22 04:30 99/81 L 06/16/22 07:18 105 H 19 99 35 06/16/22 04:00 99.7 F H 86 18 106/85 93 Mechanical Vent 40 06/16/22 04:17 86 19 94 40 06/16/22 04:00 40 06/16/22 03:00 84 16 102/79 06/16/22 02:30 99.5 F 85 15 102/82 98 06/16/22 02:25 99.5 F 85 18 98 06/16/22 02:25 102/83 06/16/22 02:20 106/80 06/16/22 02:20 99.5 F 85 18 98 06/16/22 02:15 99.5 F 85 18 98 06/16/22 02:15 102/81 06/16/22 02:10 99.5 F 85 18 98 06/16/22 02:10 106/81 06/16/22 02:05 99.5 F 85 18 97 06/16/22 02:05 102/81 06/16/22 02:00 99.5 F 85 18 97 06/16/22 02:00 104/80 06/16/22 01:55 99.5 F 86 18 97 06/16/22 01:55 103/82 06/16/22 01:50 99.5 F 86 18 97 06/16/22 01:50 104/84 06/16/22 01:45 99.5 F 87 18 97 06/16/22 01:45 98/80 L 06/16/22 01:40 93/70 L 06/16/22 01:40 99.7 F H 82 16 97 06/16/22 01:35 94/76 L 06/16/22 01:35 99.7 F H 88 18 97 06/16/22 01:30 99.7 F H 87 18 97 06/16/22 01:30 86/70 L 06/16/22 01:29 99.7 F H 87 18 97 06/16/22 01:29 83/67 L 06/16/22 01:25 75/57 L 06/16/22 01:25 99.7 F H 84 18 97 06/16/22 01:15 99.5 F 84 18 97 06/16/22 01:15 70/51 L 06/16/22 01:02 99.7 F H 85 18 97 06/16/22 01:02 74/58 L 06/16/22 01:00 99.5 F 85 18 97 06/16/22 01:00 73/57 L 06/16/22 00:45 99.7 F H 92 H 18 97 06/16/22 00:45 91/71 L 06/16/22 00:41 99.7 F H 103 H 25 H 98 06/16/22 00:41 104/63 06/16/22 00:30 99.7 F H 88 18 98 06/16/22 00:30 82/64 L 06/16/22 00:15 99.7 F H 90 18 97 06/16/22 00:15 87/68 L 06/16/22 00:00 99.7 F H 90 18 93/71 L 97 06/15/22 23:53 99.7 F H 102 H 18 109/88 97 06/15/22 23:44 99.7 F H 98 H 18 102/80 98 06/15/22 23:30 99.7 F H 94 H 18 100/82 98 06/16/22 00:00 35 06/15/22 23:00 99.7 F H 94 H 18 91/68 L 98 Mechanical Vent 35 06/15/22 22:00 99.7 F H 93 H 18 87/68 L 98 06/15/22 22:27 93 H 18 98 30 06/15/22 21:42 Mechanical Vent 35 06/15/22 21:30 91/72 L 06/15/22 21:30 99.7 F H 96 H 18 98 06/15/22 21:15 99.7 F H 95 H 18 98 PG Care Time/CCT Total # of Minutes Spent Total Time Spent with Patient: Total time spent is greater than 50% in coordination of care (as documented) at patient's floor/unit and/or counseling patient: Coding Level of Care Code 22347 Subseq Hosp Care Lvl 3 Diagnoses CAD (coronary artery disease) I25.10
[2022-06-16] MEDS: INSULIN ASPART PER UNIT SC SCH ×4 (09:14→21:03)
[2022-06-16] MEDS: ACETAMINOPHEN 1000 MG/100 ML IV IV PRN ×2 (09:15→21:06)
[2022-06-16] MEDS ORDERED: PHARMACY GLYCEMIC MGMT CONSULT PRN (10:14)
[2022-06-16] MEDS ORDERED: LANTUS PER UNIT CHARGE SQ ONE (10:15)
[2022-06-16] MEDS ORDERED: cefTRIAXone SODIUM 2,000 MG in DEXTROSE 5% 50 ML IV ONE (10:15)
[2022-06-16] MEDS: DOCUSATE SODIUM 100 MG CAP PO SCH ×2 (11:43→21:05)
[2022-06-16] MEDS: ATORVASTATIN 40 MG TAB PO SCH (11:43)
[2022-06-16] MEDS: PANTOprazole 40 MG in SYRINGE 0 ML IV SCH (11:43)
[2022-06-16] MEDS ORDERED: [UNRECOGNIZED DRUG - REMARK] ONE (12:15)
--- NOTE | 2022-06-16 12:31 | Electrocardiogram Report ---
Test Reason : Blood Pressure : / mmHG Vent. Rate : 129 BPM Atrial Rate : 258 BPM P-R Int : 000 ms QRS Dur : 088 ms QT Int : 292 ms P-R-T Axes : 042 068 068 degrees QTc Int : 427 ms Poor data quality, interpretation may be adversely affected Possible Atrial flutter with 2:1 A-V conduction Acute Inferior infarct Possible Old Anterior infarct Abnormal ECG When compared with ECG of 30-JUL-2009 07:00, Atrial flutter has replaced Sinus rhythm Vent. rate has increased BY 50 BPM Acute Inferior infarct is now Present Criteria for Old Anterior infarct now present Confirmed by Devin Sanchez ([id number]) on 06/16/2022 12:30:42 PM Referred By: REFERRED SELF Confirmed By:Devin Sanchez
--- NOTE | 2022-06-16 12:32 | Electrocardiogram Report ---
Test Reason : Blood Pressure : / mmHG Vent. Rate : 099 BPM Atrial Rate : 099 BPM P-R Int : 248 ms QRS Dur : 078 ms QT Int : 350 ms P-R-T Axes : 038 028 101 degrees QTc Int : 449 ms Sinus rhythm with 1st degree A-V block Acute Inferior infarct (cited on or before 15-JUN-2022) Possible Old Anteroseptal infarct (cited on or before 15-JUN-2022) Abnormal ECG When compared with ECG of 15-JUN-2022 09:39, Sinus rhythm has replaced Atrial flutter Serial changes of Inferior infarct Present Confirmed by Devin Sanchez ([id number]) on 06/16/2022 12:31:29 PM Referred By: REFERRED SELF Confirmed By:Devin Sanchez
--- NOTE | 2022-06-16 12:37 | Pharmacy Report ---
Pharmacy Glycemic Short Note 2 - Date of Service June 16, 2022 - Glycemic Short BSG Results (Last 24 hours): 06/15/22 06/15/22 06/15/22 15:36 15:55 17:30 Glucose 504 H* POC Glucose 471 H* 453 H* POC Glucose (other) 06/15/22 06/15/22 06/15/22 18:33 19:32 19:35 Glucose 363 H* POC Glucose 429 H* 415 H* POC Glucose (other) 06/15/22 06/15/22 06/15/22 20:39 21:21 22:33 Glucose POC Glucose 377 H* 373 H* 296 H POC Glucose (other) 06/15/22 06/16/22 06/16/22 23:42 00:39 00:45 Glucose 186 H POC Glucose 244 H 190 H POC Glucose (other) 06/16/22 06/16/22 06/16/22 01:27 02:44 03:25 Glucose POC Glucose 149 H 133 H 119 H POC Glucose (other) 06/16/22 06/16/22 06/16/22 04:07 04:35 04:40 Glucose 105 H POC Glucose 101 H 155 H POC Glucose (other) 06/16/22 06/16/22 06/16/22 05:45 05:51 06:29 Glucose POC Glucose 102 H 176 H POC Glucose (other) 264 H 06/16/22 06/16/22 06/16/22 07:31 07:51 08:01 Glucose 119 H POC Glucose 120 H 123 H POC Glucose (other) 06/16/22 06/16/22 09:20 11:36 Glucose POC Glucose 162 H 143 H POC Glucose (other) OUTPATIENT ANTIDIABETIC REGIMEN: * No prior medications * A1c = 11.7% ASSESSMENT: * Type 2 diabetic admitted for STEMI. * He is now s/p PCI with SAMANTHA's to RCA and LAD * A1c is reflective of poorly controlled DM as outpt and likely need for insulin on discharge, at least initially. Recommend consult Delivery Specialist. * Patient was initially managed with insulin drip due to severe hyperglycemia, severe physiologic stressors, mechanical ventilation, pressor support and received of IV solumedrol. This AM however, patient has been extubated, pressors are being weaned and patient's diet is being advanced to clears if tolerated. * Will initiate low dose Lantus based upon weight due to uncertain PO intake today and lessening stressors. Will dose per scale this evening based upon weight and BSG. * Novolog doses will be based upon weight and "moderate" stress level. PLAN FOR INPATIENT GLYCEMIC CONTROL: * Hold outpatient oral diabetes medications * Basal insulin * Lantus 10 units x 1 this AM. DC the insulin drip 2 hrs after Lantus given * Lantus BID starting this evening per scale: 0 units if BSG less than 120, 8 units if BSG 120-200, 15 units if BSG above 200 * Bolus insulin * NovoLog per scale ACHS and at 0200 tonight * Goal Range: Low 110 mg/dL - High 140 mg/dL * Correction Factor: 20 mg/dL/unit * Nutritional / Prandial insulin per carb ratio of 1 unit per 9 grams CHO consumed
--- NOTE | 2022-06-16 12:38 | Electrocardiogram Report ---
Test Reason : Blood Pressure : / mmHG Vent. Rate : 091 BPM Atrial Rate : 091 BPM P-R Int : 220 ms QRS Dur : 090 ms QT Int : 350 ms P-R-T Axes : 044 030 105 degrees QTc Int : 430 ms Sinus rhythm with 1st degree A-V block Recent Inferior infarct (cited on or before 15-JUN-2022) Possible Old Anteroseptal infarct (cited on or before 15-JUN-2022) T wave abnormality, consider lateral ischemia Consider right ventricular involvement in acute inferior infarct Abnormal ECG When compared with ECG of 15-JUN-2022 15:20, Serial changes of evolving Inferior infarct Present Confirmed by Devin Sanchez ([id number]) on 06/16/2022 12:38:11 PM Referred By: REFERRED SELF Confirmed By:Devin Sanchez
[2022-06-16 12:49] LABS: BUN Creatinine Ratio 26.7 (10-20); Calcium 9.1 mg/dl (8.5-10.1); Creatinine Clr Calc Pharmacy 67.3 ml/min; Est GFR (African American) 66.6 ml/min; Est GFR (Non-African American) 57.5 ml/min; Potassium 4.8 mmol/L (3.5-5.1)
[2022-06-16 16:41] LABS: BUN Creatinine Ratio 28.1 (10-20); Calcium 8.9 mg/dl (8.5-10.1); Est GFR (Non-African American) 61.3 ml/min; Potassium 4.5 mmol/L (3.5-5.1)
[2022-06-16] MEDS: LANTUS PER UNIT CHARGE SQ SCH (21:03)
[2022-06-16] MEDS: ENOXAPARIN INJ 40 MG/0.4 ML SYR SQ SCH (21:04)
[2022-06-16] MEDS: SENNA 8.6 MG TAB PO SCH (21:04)
[2022-06-17] MEDS: NOREPINEPHRINE/D5W 4 MG/250 ML PLCT IV SCH (01:00)
[2022-06-17] MEDS ORDERED: INSULIN ASPART PER UNIT SC ONE (02:00)
[2022-06-17] MEDS: ICU ELECTROLYTE REPLACEMENT PROTOCOL SCH (06:44)
[2022-06-17 06:53] LABS: BUN Creatinine Ratio 32.2 (10-20); Calcium 7.4 mg/dl (8.5-10.1); Creatinine Clr Calc Pharmacy 102.3 ml/min; Est GFR (African American) 108.7 ml/min; Est GFR (Non-African American) 93.8 ml/min; Magnesium 1.8 mg/dl (1.7-2.4); Phosphorus 3.6 mg/dl (2.5-4.9); Potassium 3.8 mmol/L (3.5-5.1)
[2022-06-17] MEDS ORDERED: MAG SULFATE 50% 1GM/2ML VIAL IV ONE (07:17)
[2022-06-17] MEDS ORDERED: POTASSIUM CHLORIDE CRTAB 20 MEQ TABCR PO STA (07:24)
[2022-06-17] MEDS: LANTUS PER UNIT CHARGE SQ SCH ×2 (07:38→20:26)
[2022-06-17] MEDS: INSULIN ASPART PER UNIT SC SCH ×4 (07:38→20:26)
[2022-06-17] MEDS: MAGNESIUM SULFATE / D5W 1 GM/100 ML BAG IV SCH ×2 (07:39→09:33)
[2022-06-17] MEDS: DOCUSATE SODIUM 100 MG CAP PO SCH ×2 (07:47→19:51)
--- NOTE | 2022-06-17 08:12 | XRay Report ---
XR chest 1V portable CLINICAL HISTORY: f/u COMPARISON STUDY: Chest radiograph June 16, 2022. FINDINGS: Endotracheal and nasogastric tubes have been removed. Cardiomediastinal silhouette is stabl e. There is no pneumothorax. Small bilateral pleural effusions are again noted. Pulmonary edema has l ikely improved. Perihilar and bibasilar opacities have improved. IMPRESSION: 1. Interval removal of the endotracheal and nasogastric tubes. 2. Pulmonary edema with perihilar and bibasilar opacities, improved since prior exam. 3. Small bilateral pleural effusions. ACT 112: Negative or not required by law. Electronically signed by: Tahir Henson M.D. 06/17/2022 8:11 AM
[2022-06-17] MEDS: TICAGRELOR 90 MG TAB PO SCH ×2 (08:20→19:55)
[2022-06-17] MEDS: ATORVASTATIN 40 MG TAB PO SCH (08:20)
[2022-06-17] MEDS: ASPIRIN 81 MG ECTAB PO SCH (08:20)
[2022-06-17 08:35] LABS: Basophils # (auto) 0.03 K/uL (0-0.2); Basophils % (auto) 0.2 %; Echinocytes 1+; Eosinophils # (auto) 0.02 K/uL (0-0.50); Eosinophils % (auto) 0.2 %; Hematocrit (blood only) 34.5 % (40.1-51.0); Immature Granulocytes # (auto) 0.08 K/uL (0.00-0.02); Immature Granulocytes % (auto) 0.6 %; Lymphocytes # (auto) 1.29 K/uL (1.2-3.4); Mean Corpuscular Hemoglobin 29.9 pg (25.0-34.0); Mean Corpuscular Hgb Conc 34.8 g/dL (32.0-36.0); Mean Corpuscular Volume 85.8 fL (80.0-100.0); Monocytes # (auto) 1.07 K/uL (0.24-0.82); Monocytes % (auto) 8.3 %; Neutrophils # (auto) 10.47 K/uL (1.4-6.5); Neutrophils % (auto) 80.7 %; Platelet Count 178 K/uL (130-400); Platelet Estimate Normal (Normal); RDW Coefficient of Variation 12.1 % (11.5-14.5); RDW Standard Deviation 37.8 fL (36.4-46.3); Red Blood Count 4.02 M/uL (4.63-6.08); White Blood Count 12.96 K/ul (4.8-10.8)
--- NOTE | 2022-06-17 08:52 | Critical Care Progress Note ---
Date of Service June 17, 2022 Assessment & Plan (1) STEMI (ST elevation myocardial infarction): (2) Pulmonary edema: (3) Acute respiratory failure with hypoxia: (4) Leukocytosis: Plan 57-year-old male was brought to the ER because of shortness of breath, was found to have STEMI. He was intubated in the ER for respiratory distress He was taken to Mgmt Analyst -- S/p VDRF Secondary to acute hypoxic respiratory failure likely from pulmonary edema from acute STEMI Respiratory bio fire negative for COVID 19 Continue with O2 supplementation to keep oxygen saturation between 90-92% BiPAP nightly and as needed shortness of breath -- STEMI PCI s/p SAMANTHA 4 in RCA, 1 SAMANTHA in LAD Continue to trend troponin BNP 884 on 06/15/2022 Patient still has persistent elevation of ST in leads II-III-aVF. Continue with statin, aspirin, Brilinta Metoprolol 12.5 mg twice daily -- S/p shock Likely from sedated being used Off vasopressors as of 06/16/2022 -- Diabetes type 2 HbA1c 12.6 Not on any medications at home Insulin as per ICU protocol --Leukocytosis --> improving Likely reactive to STEMI Continue to monitor --New onset fever Likely secondary to cardiac cath with possible pericarditis like to check Blood cultures are negative to date Patient did get a dose of Rocephin on 06/16/2022 --Prophylaxis VTE: Lovenox GI: Pantoprazole Lines: Right femoral sheath removed 06/16/2022, peripheral Diet: Cardiac diet Plan: In/out: -118, urine output [address] elevation in lead to 3 aVF as well as V6. Mild ST depression in V3 Chest x-ray from today does show improvement in the pulmonary vascular congestion. Blunting of bilateral costophrenic angles still persists Start the patient on metoprolol 12.5 mg every 12 hours with holding parameters. Potassium and magnesium being replaced. Follow repeat 2D echo from today. I will decide later if another dose of Lasix should be given. Patient hemoglobin is slowly trending down. I will repeat H&H at 12. Please note the above document was generated using voice recognition software. It may contain grammatical, syntax or spelling errors.Any formal questions or concerns about the content, text or information contained within the body of this dictation should be directly addressed to the provider for clarification. Admission and Anticipated Discharge Date Admission Date: June 15, 2022 Subjective Patient seen and examined at bedside. No acute distress, no adverse events overnight Patient complained of chest tightness yesterday but today he is saying that he is feeling much better. No more chest pain or chest heaviness. Denies any nausea vomiting No headache, no blurry vision No dizziness. Has been afebrile in the last 12 hours. Review of Systems Review of Systems: All systems reviewed & are unremarkable except as noted in Subjective Physical Exam Physical Exam: Constitutional: No acute distress HEENT: PERRLA Respiratory system: Decreased air entry bilaterally, no wheeze, no rhonchi, positive crackles bilateral lower lobes CVS: S1-S2 positive, no murmurs or gallops Abdomen: Soft, nontender, nondistended, positive bowel sounds x4 Extremities: +2 pulses bilaterally radialis/ dorsalis pedis, no cyanosis, +1 pitting edema bilateral lower extremity Neuro: Awake alert oriented x3 Psych: Normal mood and affect G/U: Positive Tam Skin: no rashes, warm and dry Lymphatic: no cervical or axillary lymphadenopathy Results & Data Results & Data ([facility]) Vital Signs (Past 12 Hours) Vital Signs Temp Pulse Resp BP Pulse Ox O2 Del Method O2 Flow Rate 06/17/22 08:00 Nasal Cannula 06/17/22 08:00 Nasal Cannula 1 06/17/22 08:00 113 H 06/17/22 07:00 107 H 23 96 06/17/22 07:00 106/79 06/17/22 07:46 36.5 C 06/17/22 06:00 102 H 38 H 116/83 97 06/17/22 05:00 106 H 28 H 112/79 96 06/17/22 04:00 103 H 29 H 115/81 98 06/17/22 04:08 37.1 C 06/17/22 03:00 103 H 22 110/81 98 Nasal Cannula 1 06/17/22 02:00 102 H 26 H 119/83 99 Nasal Cannula 1 06/17/22 01:00 102 H 26 H 109/81 97 Nasal Cannula 1 06/17/22 00:00 37.9 C H 106 H 22 125/88 97 Nasal Cannula 1 06/16/22 23:00 37.9 C H 100 H 32 H 101/72 97 Nasal Cannula 1 06/16/22 22:00 38.0 C H 103 H 28 H 102/65 99 Nasal Cannula 2 06/16/22 21:00 38.2 C H 106 H 32 H 107/70 99 Nasal Cannula 2 Laboratory Results 06/17/22 06:05 06/17/22 06:05 Coding Level of Care Code 51364 Subseq [facility] 3 Diagnoses STEMI (ST elevation myocardial infarction) I21.3 Pulmonary edema J81.1 Acute respiratory failure with hypoxia J96.01 Leukocytosis D72.829
[2022-06-17] MEDS ORDERED: METOPROLOL TARTRATE 25 MG TAB PO SCH (09:00)
[2022-06-17] MEDS ORDERED: PANTOprazole 40 MG TAB PO ONE (11:00)
--- NOTE | 2022-06-17 11:02 | Pharmacy Report ---
Pharmacy Glycemic Short Note 2 - Date of Service June 17, 2022 - Glycemic Short BSG Results (Last 24 hours): 06/16/22 06/16/22 06/16/22 11:36 12:22 15:56 Glucose 174 H 212 H POC Glucose 143 H 06/16/22 06/16/22 06/17/22 16:32 20:53 02:23 Glucose POC Glucose 244 H 207 H 137 H 06/17/22 06/17/22 06:05 07:22 Glucose 134 H POC Glucose 141 H OUTPATIENT ANTIDIABETIC REGIMEN: * No prior medications * A1c = 11.7% ASSESSMENT: 06/17 * BSGs reasonably controlled following transition off insulin drip yesterday * BSGs did climb into the 240s in the evening however did return to goal this AM following receipt of larger basal insulin dose last evening * Plan to continue scaled Lantus dosing as we have not yet achieved steady state with current insulin regimen * Will also continue current Novolog CF/CR and following post-prandial BSGs today to determine if adjustment needed. 06/16 * Type 2 diabetic admitted for STEMI. * He is now s/p PCI with SAMANTHA's to RCA and LAD * A1c is reflective of poorly controlled DM as outpt and likely need for insulin on discharge, at least initially. Recommend consult Potato Inspector. * Patient was initially managed with insulin drip due to severe hyperglycemia, severe physiologic stressors, mechanical ventilation, pressor support and received of IV solumedrol. This AM however, patient has been extubated, pressors are being weaned and patient's diet is being advanced to clears if tolerated. * Will initiate low dose Lantus based upon weight due to uncertain PO intake today and lessening stressors. Will dose per scale this evening based upon weight and BSG. * Novolog doses will be based upon weight and "moderate" stress level. PLAN FOR INPATIENT GLYCEMIC CONTROL: * Basal insulin * Lantus BID starting this evening per scale: 0 units if BSG less than 120, 8 units if BSG 120-200, 15 units if BSG above 200 * Bolus insulin * NovoLog per scale ACHS and at 0200 tonight * Goal Range: Low 110 mg/dL - High 140 mg/dL * Correction Factor: 20 mg/dL/unit * Nutritional / Prandial insulin per carb ratio of 1 unit per 9 grams CHO consumed
[2022-06-17] MEDS ORDERED: cefTRIAXone SODIUM 2,000 MG in DEXTROSE 5% 50 ML IV ONE (12:00)
[2022-06-17 12:28] LABS: Hemoglobin 12.9 g/dl (14.0-18.0)
--- NOTE | 2022-06-17 12:33 | Hospitalist Progress Note ---
Date of Service June 17, 2022 Assessment & Plan (1) STEMI (ST elevation myocardial infarction): Plan: Patient admitted following 3 day history of dyspnea and onset of chest pain. Elevated HScTNI with ECG changes. Patient was intubated and emergently taken to the [facility] for interventional evaluation Was a heart alert and had 4 overlapping drug-eluting stents placed in RCA and 1 in the LAD with poor flow in the RCA Troponin peaked at 28,639 and is chest pain-free With resultant ischemic cardiomyopathy: Echocardiogram with initial EF 20-25% with wall motion abnormalities. Repeat limited echo on 06/17 with improvement in EF to 30-35% with similar wall motion abnormalities With pulmonary edema, respiratory failure and pleural effusion all improving with diuresis Lipid panel acceptable except low HDL, LDL 130 With severely uncontrolled diabetes with hemoglobin A1c 11.7% Appreciate cardiology consultation, appreciate can cleaner management-extubated on morning of 06/16 and now weaned to room air Stable for downgrade out of ICU Titrate up on metoprolol tartrate to 25 Mg p.o. twice daily and eventually switch to Toprol-XL Starting losartan 12.5 Mg p.o. once daily as per cardiology Continue DAPT with aspirin and Brilinta Continue high intensity statin with atorvastatin 80 Mg once daily Referred to cardiac rehab as an outpatient Add on SGLT2 as an outpatient if affordable Will need a LifeVest on discharge-Case management consulted (2) CHF (congestive heart failure): Plan: As above Daily I's and O's, weights, low-sodium diet, fluid restriction (3) Acute respiratory failure with hypoxia: Plan: Acute respiratory failure secondary to pulmonary edema and STEMI - Requiring intubation and mechanical ventilation Now extubated and weaned to room air Diuresis as needed (4) CAD (coronary artery disease): Plan: Severe, as above (5) Diabetes: Plan: With known history of diabetes for years but he has not been seeing a doctor or on any medication Hemoglobin A1c here elevated 11.7% Continue basal and bolus insulin Consult diabetes education-will need glucometer, test strips, lancets Will need to go home on insulin Also will need SGLT2 (6) Fever: Plan: Had a fever with T-max 38.2 on the evening of 06/16 Now resolved Repeat limited echo without evidence of pericarditis Possibly atelectasis Was given 1 dose of ceftriaxone-hold off on further antibiotics Follow blood cultures-no growth to date Leukocytosis now much improved and he also received steroids on admission which may been contributing to leukocytosis (7) Leukocytosis: Plan: WBC 17 on arrival with Neutrophil predominance DDX: Acute stress elevation vs. Infectious Did have a fever on the night of 06/16 as above - COVID and Respiratory BIOFIRE- NEGATIVE -Blood cultures-no growth to date Now improving Plan DVT prophylaxis-SCDs, Lovenox Disposition-downgrade from ICU to PCU Continued stay, possible discharge home next 1 to 2 days. He will need a LifeVest at discharge Admission and Anticipated Discharge Date Admission Date: June 15, 2022 Subjective Patient feeling improved today. Still some shortness of breath but overall improved. Ambulating around the halls, now weaned off oxygen. Denies any chest pain. No nausea or vomiting, no abdominal pains. He is moving his bowels, making urin e. No headache or lightheadedness. He had a fever last night but this is now resolved. I discussed his care with the can cleaner. He is stable for downgrade out of the ICU. Review of Systems Review of Systems: All systems reviewed & are unremarkable except as noted in HPI & below Physical Exam Constitutional: WD/WN, vitals as above Eyes: + anicteric sclerae ENMT: external ear and nose normal, oropharynx normal Neck: trachea midline, no thyromegaly Respiratory: normal respiratory effort; no cough Auscultation: + crackles (Bibasilar); no rhonchi and no wheezes Cardiovascular: Rate/Rhythm: regular rate and regular rhythm Heart Sounds: + murmur (1/6 systolic murmur at apex) Chest (Breasts): Chest: normal inspection of chest Gastrointestinal (Abdomen): normal bowel sounds, soft, nontender, no hepatosplenomegaly Musculoskeletal: Extremities: extremities normal to inspection; no cyanosis and no clubbing Skin: no rashes, warm and dry Neurologic: moves all extremities and awake; no focal motor deficits Psychiatric: A+Ox3, euthymic affect Lymphatic: no lymphedema Results & Data Results & Data ([facility]) Vital Signs (Past 12 Hours) Vital Signs Temp Pulse Resp BP BP Pulse Ox O2 Del Method 06/17/22 12:00 109 H 25 H 112/75 98 Room Air 06/17/22 11:00 105 H 33 H 97 06/17/22 11:00 120/88 06/17/22 10:00 105 H 27 H 97 06/17/22 10:00 121/91 06/17/22 11:13 37.3 C 06/17/22 10:09 121/91 06/17/22 10:09 96 Room Air 06/17/22 09:00 107 H 31 H 98 06/17/22 09:00 115/88 06/17/22 08:00 113 H 38 H 96 06/17/22 08:00 118/85 06/17/22 08:00 Nasal Cannula 06/17/22 08:00 Nasal Cannula 06/17/22 08:00 113 H 06/17/22 07:00 107 H 23 96 06/17/22 07:00 106/79 06/17/22 07:46 36.5 C 06/17/22 06:00 102 H 38 H 116/83 97 06/17/22 05:00 106 H 28 H 112/79 96 06/17/22 04:00 103 H 29 H 115/81 98 06/17/22 04:08 37.1 C 06/17/22 03:00 103 H 22 110/81 98 Nasal Cannula 06/17/22 02:00 102 H 26 H 119/83 99 Nasal Cannula 06/17/22 01:00 102 H 26 H 109/81 97 Nasal Cannula O2 Flow Rate 06/17/22 12:00 06/17/22 11:00 06/17/22 11:00 06/17/22 10:00 06/17/22 10:00 06/17/22 11:13 06/17/22 10:09 06/17/22 10:09 06/17/22 09:00 06/17/22 09:00 06/17/22 08:00 06/17/22 08:00 06/17/22 08:00 06/17/22 08:00 1 06/17/22 08:00 06/17/22 07:00 06/17/22 07:00 06/17/22 07:46 06/17/22 06:00 06/17/22 05:00 06/17/22 04:00 06/17/22 04:08 06/17/22 03:00 1 06/17/22 02:00 1 06/17/22 01:00 1 Laboratory Results 06/17/22 06/17/22 06/17/22 Range/Units 16:18 12:09 11:12 WBC (4.8-10.8) K/ul RBC (4.63-6.08) M/uL Hgb 12.9 L (14.0-18.0) g/dl Hct 38.0 L (40.1-51.0) % MCV (80.0-100.0) fL MCH (25.0-34.0) pg MCHC (32.0-36.0) g/dL RDW Std Deviation (36.4-46.3) fL RDW Coeff of Kiya (11.5-14.5) % Plt Count (130-400) K/uL MPV (9.4-12.4) fL Immature Gran % (Auto) % Neut % (Auto) % Lymph % (Auto) % Dale % (Auto) % Eos % (Auto) % Baso % (Auto) % Neut # (Auto) (1.4-6.5) K/uL Lymph # (Auto) (1.2-3.4) K/uL Dale # (Auto) (0.24-0.82) K/uL Eos # (Auto) (0-0.50) K/uL Baso # (Auto) (0-0.2) K/uL Immature Gran # (Auto) (0.00-0.02) K/uL Platelet Estimate (Normal) Echinocytes Sodium (136-145) mmol/L Potassium (3.5-5.1) mmol/L Chloride (98-107) mmol/L Carbon Dioxide (21-32) mmol/L Anion Gap (3-11) BUN (6-23) mg/dl Creatinine (0.6-1.4) mg/dl Est Cr Clr Drug Dosing ml/min Est GFR ( Amer) ml/min Est GFR (Non-Af Amer) ml/min BUN/Creatinine Ratio (10-20) Glucose (70-99(Fasting)) mg/dl POC Glucose 228 H 248 H (70-99) mg/dl Calcium (8.5-10.1) mg/dl Phosphorus (2.5-4.9) mg/dl Magnesium (1.7-2.4) mg/dl 06/17/22 06/17/22 06/17/22 Range/Units 07:22 06:05 06:05 WBC 12.96 H (4.8-10.8) K/ul RBC 4.02 L (4.63-6.08) M/uL Hgb 12.0 L (14.0-18.0) g/dl Hct 34.5 L (40.1-51.0) % MCV 85.8 (80.0-100.0) fL MCH 29.9 (25.0-34.0) pg MCHC 34.8 (32.0-36.0) g/dL RDW Std Deviation 37.8 (36.4-46.3) fL RDW Coeff of Kiya 12.1 (11.5-14.5) % Plt Count 178 D (130-400) K/uL MPV 10.0 (9.4-12.4) fL Immature Gran % (Auto) 0.6 % Neut % (Auto) 80.7 % Lymph % (Auto) 10.0 % Dale % (Auto) 8.3 % Eos % (Auto) 0.2 % Baso % (Auto) 0.2 % Neut # (Auto) 10.47 H (1.4-6.5) K/uL Lymph # (Auto) 1.29 (1.2-3.4) K/uL Dale # (Auto) 1.07 H (0.24-0.82) K/uL Eos # (Auto) 0.02 (0-0.50) K/uL Baso # (Auto) 0.03 (0-0.2) K/uL Immature Gran # (Auto) 0.08 H (0.00-0.02) K/uL Platelet Estimate Normal (Normal) Echinocytes 1+ Sodium 134 L (136-145) mmol/L Potassium 3.8 (3.5-5.1) mmol/L Chloride 102 (98-107) mmol/L Carbon Dioxide 23 (21-32) mmol/L Anion Gap 9 (3-11) BUN 29 H (6-23) mg/dl Creatinine 0.90 D (0.6-1.4) mg/dl Est Cr Clr Drug Dosing 102.3 ml/min Est GFR ( Amer) 108.7 ml/min Est GFR (Non-Af Amer) 93.8 ml/min BUN/Creatinine Ratio 32.2 H (10-20) Glucose 134 H (70-99(Fasting)) mg/dl POC Glucose 141 H (70-99) mg/dl Calcium 7.4 L (8.5-10.1) mg/dl Phosphorus 3.6 (2.5-4.9) mg/dl Magnesium 1.8 (1.7-2.4) mg/dl 06/17/22 06/16/22 Range/Units 02:23 20:53 WBC (4.8-10.8) K/ul RBC (4.63-6.08) M/uL Hgb (14.0-18.0) g/dl Hct (40.1-51.0) % MCV (80.0-100.0) fL MCH (25.0-34.0) pg MCHC (32.0-36.0) g/dL RDW Std Deviation (36.4-46.3) fL RDW Coeff of Kiya (11.5-14.5) % Plt Count (130-400) K/uL MPV (9.4-12.4) fL Immature Gran % (Auto) % Neut % (Auto) % Lymph % (Auto) % Dale % (Auto) % Eos % (Auto) % Baso % (Auto) % Neut # (Auto) (1.4-6.5) K/uL Lymph # (Auto) (1.2-3.4) K/uL Dale # (Auto) (0.24-0.82) K/uL Eos # (Auto) (0-0.50) K/uL Baso # (Auto) (0-0.2) K/uL Immature Gran # (Auto) (0.00-0.02) K/uL Platelet Estimate (Normal) Echinocytes Sodium (136-145) mmol/L Potassium (3.5-5.1) mmol/L Chloride (98-107) mmol/L Carbon Dioxide (21-32) mmol/L Anion Gap (3-11) BUN (6-23) mg/dl Creatinine (0.6-1.4) mg/dl Est Cr Clr Drug Dosing ml/min Est GFR ( Amer) ml/min Est GFR (Non-Af Amer) ml/min BUN/Creatinine Ratio (10-20) Glucose (70-99(Fasting)) mg/dl POC Glucose 137 H 207 H (70-99) mg/dl Calcium (8.5-10.1) mg/dl Phosphorus (2.5-4.9) mg/dl Magnesium (1.7-2.4) mg/dl Diagnostic Findings Chest x-ray image personally reviewed by me and agree with the following report: Chest X-Ray 06/17/22 07:00 XR chest 1V portable CLINICAL HISTORY: f/u COMPARISON STUDY: Chest radiograph June 16, 2022. FINDINGS: Endotracheal and nasogastric tubes have been removed. Cardiomediastinal silhouette is stable. There is no pneumothorax. Small bilateral pleural effusions are again noted. Pulmonary edema has likely improved. Perihilar and bibasilar opacities have improved. IMPRESSION: 1. Interval removal of the endotracheal and nasogastric tubes. 2. Pulmonary edema with perihilar and bibasilar opacities, improved since prior exam. 3. Small bilateral pleural effusions. ACT 112: Negative or not required by law. Electronically signed by: Tahir Henson M.D. 06/17/2022 8:11 AM ECG Additional Comments: ECG 06/17 at 5:29 AM with sinus tachycardia, ST elevation persists in leads II, III and aVF with ST depressions in V3 PG Care Time/CCT Total # of Minutes Spent Total Time Spent with Patient: Total time spent is greater than 50% in coordination of care (as documented) at patient's floor/unit and/or counseling patient: Coding Level of Care Code 58083 Subseq Hosp Care Lvl 3 Diagnoses STEMI (ST elevation myocardial infarction) I21.3 CHF (congestive heart failure) I50.9 Heart failure chronicity: acute Heart failure type: unspecified Acute respiratory failure with hypoxia J96.01 CAD (coronary artery disease) I25.10 Diabetes E11.9 Fever R50.9 Leukocytosis D72.829 (1) CHF (congestive heart failure) Heart failure chronicity: acute Heart failure type: unspecified Qualified Code(s): I50.9 - Heart failure, unspecified
--- NOTE | 2022-06-17 13:47 | Electrocardiogram Report ---
Test Reason : Blood Pressure : / mmHG Vent. Rate : 109 BPM Atrial Rate : 109 BPM P-R Int : 214 ms QRS Dur : 080 ms QT Int : 318 ms P-R-T Axes : 045 042 102 degrees QTc Int : 428 ms Sinus tachycardia with 1st degree A-V block Possible Left atrial enlargement Anteroseptal infarct (cited on or before 15-JUN-2022) Inferior injury pattern ACUTE NH / STEMI Abnormal ECG When compared with ECG of 16-JUN-2022 07:00, No significant change Confirmed by Theron Munoz ([id number]) on 06/17/2022 1:47:25 PM Referred By: REFERRED SELF Confirmed By:Theron Munoz
--- NOTE | 2022-06-17 14:12 | Electrocardiogram Report ---
Test Reason : Blood Pressure : / mmHG Vent. Rate : 107 BPM Atrial Rate : 107 BPM P-R Int : 208 ms QRS Dur : 080 ms QT Int : 330 ms P-R-T Axes : 054 068 100 degrees QTc Int : 440 ms Sinus tachycardia Possible Left atrial enlargement Low voltage QRS Acute Anterior infarct Abnormal ECG When compared with ECG of 16-JUN-2022 15:39, (unconfirmed) No significant change was found Confirmed by Theron Munoz ([id number] on 06/17/2022 2:12:01 PM Referred By: REFERRED SELF Confirmed By:Theron Munoz
--- NOTE | 2022-06-17 14:42 | XCELERA ---
[id number] \\[id number]___[id number]
--- NOTE | 2022-06-17 14:50 | Cardiology Progress Note ---
Date of Service June 17, 2022 Assessment & Plan (1) CAD (coronary artery disease): Plan: Inferior STEMIpost PCI with 4 SAMANTHA to RCA into PDA, post procedure KIRSTEN I flow post PCI to proximal LAD single with SAMANTHA Residual 70% OM disease 2. Acute heart failure/ischemic cardiomyopathyEF 30-35%, inferior akinesis, LAD distribution wall motion abnormality 3. Poorly controlled type 2 [id number] 11.7 4. Dyslipidemia 5. Mild AKIresolved 6. Leukocytosisimproving 7. Pleural effusion Chest pain-free and troponin has peaked. No access to complications Electrically stable Renal function stable Well perfused without significant congestion on exam LV function mildly improved from post procedure, still EF <35% Continue DAPT with aspirin, ticagrelor Increase metoprolol to 25 mg twice daily, transition to Toprol on discharge Add low-dose losartan Continue current atorvastatin Discussed LifeVest on discharge with patient, brother. He is going to think about it further. Hopefully SGLT2 as an outpatient Okay with transfer to telemetry today. Appreciate ICU and hospital medicine care. We will follow Admission and Anticipated Discharge Date Admission Date: June 15, 2022 Subjective Patient up in chair at time of visit today. Walked earlier with PT. Denies any recurrent chest pain. Denies significant shortness of breath. No events overnight. Telemetry reviewedsinus tachycardia. Review of Systems Review of Systems: All systems reviewed & are unremarkable except as noted in HPI & below Physical Exam Physical Exam: General: Comfortable HEENT: Sclerae anicteric Lungs: Decreased breath sounds at right base, otherwise clear Cardiac: Tachycardic, regular, high-pitched 3/6 murmur heard best at left lower sternal border Vascular: Right radial artery access site with no ecchymosis, hematoma. Distal pulse and sensation intact. Abdomen: Soft, nontender Extremities: Warm intact DP pulses. No edema. Neuro: Nonfocal Psych: Alert and oriented Results & Data ([facility]) Vital Signs (Past 12 Hours) Vital Signs Temp Pulse Resp BP BP Pulse Ox O2 Del Method 06/17/22 12:55 90 06/17/22 12:00 109 H 25 H 112/75 98 Room Air 06/17/22 11:00 105 H 33 H 97 06/17/22 11:00 120/88 06/17/22 10:00 105 H 27 H 97 06/17/22 10:00 121/91 06/17/22 11:13 99.1 F 06/17/22 10:09 121/91 06/17/22 10:09 96 Room Air 06/17/22 09:00 107 H 31 H 98 06/17/22 09:00 115/88 06/17/22 08:00 113 H 38 H 96 06/17/22 08:00 118/85 06/17/22 08:00 Nasal Cannula 06/17/22 08:00 Nasal Cannula 06/17/22 08:00 113 H 06/17/22 07:00 107 H 23 96 06/17/22 07:00 106/79 06/17/22 07:46 97.7 F 06/17/22 06:00 102 H 38 H 116/83 97 06/17/22 05:00 106 H 28 H 112/79 96 06/17/22 04:00 103 H 29 H 115/81 98 06/17/22 04:08 98.8 F 06/17/22 03:00 103 H 22 110/81 98 Nasal Cannula O2 Flow Rate 06/17/22 12:55 06/17/22 12:00 06/17/22 11:00 06/17/22 11:00 06/17/22 10:00 06/17/22 10:00 06/17/22 11:13 06/17/22 10:09 06/17/22 10:09 06/17/22 09:00 06/17/22 09:00 06/17/22 08:00 06/17/22 08:00 06/17/22 08:00 06/17/22 08:00 1 06/17/22 08:00 06/17/22 07:00 06/17/22 07:00 06/17/22 07:46 06/17/22 06:00 06/17/22 05:00 06/17/22 04:00 06/17/22 04:08 06/17/22 03:00 1 PG Care Time/CCT Total # of Minutes Spent Total Time Spent with Patient: Total time spent is greater than 50% in coordination of care (as documented) at patient's floor/unit and/or counseling patient: Coding Level of Care Code 80822 Subseq Hosp Care Lvl 3 Diagnoses CAD (coronary artery disease) I25.10
[2022-06-17] MEDS: SENNA 8.6 MG TAB PO SCH (19:52)
[2022-06-17] MEDS: METOPROLOL TARTRATE 25 MG TAB PO SCH (19:55)
[2022-06-17] MEDS: ENOXAPARIN INJ 40 MG/0.4 ML SYR SQ SCH (19:56)
[2022-06-17] MEDS ORDERED: COUGH DROP (SUGAR FREE) LOZ 24 LOZ/1 BOX BUCCAL PRN (23:26)
[2022-06-18] MEDS ORDERED: INSULIN ASPART PER UNIT SC ONE (02:00)
--- NOTE | 2022-06-18 05:06 | Communication Note ---
Date of Service: June 18, 2022 Night resident note 04:30- RN notified me that patient's HR increased from the 90s-low 110s range to the mid-140s. BP was 112/78, other vitals stable. Patient was asymptomatic. I ordered an EKG which showed atrial flutter with some questionable ST depression in inferior and lateral leads. While reviewing patient's chart, RN notified me that patient's HR had gone back down to 100; vitals otherwise remained stable, and patient was still asymptomatic. Per telemetry, patient had converted back to sinus rhythm. Given patient spontaneously converted back to NSR and was asymptomatic, did not order any additional intervention. John Cahparro, PGY-3 Resident Activity Tracking Resident Involvement: Resident Care Provided and Oxygen Equipment Preparer Coverage Note Care Provided: Adult Hospital Medicine
[2022-06-18 07:07] LABS: Basophils # (auto) 0.03 K/uL (0-0.2); Basophils % (auto) 0.3 %; Eosinophils # (auto) 0.04 K/uL (0-0.50); Eosinophils % (auto) 0.3 %; Hematocrit (blood only) 36.9 % (40.1-51.0); Hemoglobin 12.6 g/dl (14.0-18.0); Immature Granulocytes % (auto) 0.9 %; Lymphocytes # (auto) 1.23 K/uL (1.2-3.4); Lymphocytes % (auto) 10.7 %; Mean Corpuscular Hemoglobin 29.8 pg (25.0-34.0); Mean Corpuscular Hgb Conc 34.1 g/dL (32.0-36.0); Mean Corpuscular Volume 87.2 fL (80.0-100.0); Mean Platelet Volume 9.5 fL (9.4-12.4); Monocytes # (auto) 1.14 K/uL (0.24-0.82); Neutrophils # (auto) 8.91 K/uL (1.4-6.5); Neutrophils % (auto) 77.8 %; Platelet Count 231 K/uL (130-400); RDW Coefficient of Variation 11.9 % (11.5-14.5); RDW Standard Deviation 38.1 fL (36.4-46.3); Red Blood Count 4.23 M/uL (4.63-6.08); White Blood Count 11.45 K/ul (4.8-10.8)
[2022-06-18 07:34] LABS: BUN Creatinine Ratio 26.8 (10-20); Bilirubin Direct 0.2 mg/dl (0-0.2); Bilirubin,Total 1.1 mg/dl (0.2-1.0); Creatinine Clr Calc Pharmacy 112.7 ml/min; Est GFR (Non-African American) 97.5 ml/min; Magnesium 2.2 mg/dl (1.7-2.4); Phosphorus 3.1 mg/dl (2.5-4.9); Total Protein 5.9 gm/dl (6.0-8.3)
[2022-06-18] MEDS: TICAGRELOR 90 MG TAB PO SCH ×2 (08:29→19:54)
[2022-06-18] MEDS: PANTOprazole 40 MG TAB PO SCH (08:29)
[2022-06-18] MEDS: DOCUSATE SODIUM 100 MG CAP PO SCH ×2 (08:29→19:36)
[2022-06-18] MEDS: ATORVASTATIN 40 MG TAB PO SCH (08:29)
[2022-06-18] MEDS: ASPIRIN 81 MG ECTAB PO SCH (08:29)
[2022-06-18] MEDS: LANTUS PER UNIT CHARGE SQ SCH ×2 (08:31→12:17)
[2022-06-18] MEDS: INSULIN ASPART PER UNIT SC SCH ×4 (08:36→19:54)
[2022-06-18] MEDS: METOPROLOL TARTRATE 25 MG TAB PO SCH ×2 (08:55→19:40)
[2022-06-18] MEDS: LOSARTAN POTASSIUM 25 MG TAB PO SCH (08:55)
--- NOTE | 2022-06-18 09:17 | Electrocardiogram Report ---
Test Reason : Blood Pressure : / mmHG Vent. Rate : 119 BPM Atrial Rate : 293 BPM P-R Int : 000 ms QRS Dur : 080 ms QT Int : 266 ms P-R-T Axes : 000 062 184 degrees QTc Int : 374 ms Atrial flutter with variable A-V block Abnormal ECG When compared with ECG of 17-JUN-2022 05:29, Atrial flutter has replaced Sinus rhythm ST elevation in Inferior leads no longer present Confirmed by Devin Sanchez ([id number]) on 06/18/2022 9:17:03 AM Referred By: REFERRED SELF Confirmed By:Devin Sanchez
--- NOTE | 2022-06-18 11:45 | Pharmacy Report ---
Pharmacy Glycemic Short Note 2 - Date of Service June 18, 2022 - Glycemic Short BSG Results (Last 24 hours): 06/17/22 06/17/22 06/18/22 16:18 20:09 01:58 Glucose POC Glucose 228 H 173 H 143 H 06/18/22 06/18/22 06/18/22 06:55 07:30 11:09 Glucose 126 H POC Glucose 111 H 145 H OUTPATIENT ANTIDIABETIC REGIMEN: * No prior medications * A1c = 11.7% ASSESSMENT: 06/18/22 * BSGs yesterday were [phone] mg/dL. Patient received 40 units of insulin yesterday (16 units of basal and 24 units of bolus). * Fasting trending downwards today so reduce dose to Lantus 10 units once daily. Monitor. * CR tightened yesterday for dinner which is appropriate. Will monitor. 06/17 * BSGs reasonably controlled following transition off insulin drip yesterday * BSGs did climb into the 240s in the evening however did return to goal this AM following receipt of larger basal insulin dose last evening * Plan to continue scaled Lantus dosing as we have not yet achieved steady state with current insulin regimen * Will also continue current Novolog CF/CR and following post-prandial BSGs today to determine if adjustment needed. 06/16 * Type 2 diabetic admitted for STEMI. * He is now s/p PCI with SAMANTHA's to RCA and LAD * A1c is reflective of poorly controlled DM as outpt and likely need for insulin on discharge, at least initially. Recommend consult Employee Relations Specialist. * Patient was initially managed with insulin drip due to severe hyperglycemia, severe physiologic stressors, mechanical ventilation, pressor support and received of IV solumedrol. This AM however, patient has been extubated, pressors are being weaned and patient's diet is being advanced to clears if tolerated. * Will initiate low dose Lantus based upon weight due to uncertain PO intake today and lessening stressors. Will dose per scale this evening based upon weight and BSG. * Novolog doses will be based upon weight and "moderate" stress level. PLAN FOR INPATIENT GLYCEMIC CONTROL: * Basal insulin * Lantus 10 units daily * Bolus insulin * NovoLog per scale ACHS and at 0200 tonight * Goal Range: Low 110 mg/dL - High 140 mg/dL * Correction Factor: 20 mg/dL/unit * Nutritional / Prandial insulin per carb ratio of 1 unit per 7 grams CHO consumed
--- NOTE | 2022-06-18 12:41 | Hospitalist Progress Note ---
Date of Service June 18, 2022 Assessment & Plan (1) STEMI (ST elevation myocardial infarction): Plan: Patient admitted following 3 day history of dyspnea and onset of chest pain. Elevated HScTNI with ECG changes. Patient was intubated and emergently taken to the quality assurance qa lab technician for interventional evaluation Was a heart alert and had 4 overlapping drug-eluting stents placed in RCA and 1 in the LAD with poor flow in the RCA Troponin peaked at 28,639 and now remains chest pain-free With resultant ischemic cardiomyopathy: Echocardiogram with initial EF 20-25% with wall motion abnormalities. Repeat limited echo on 06/17 with improvement in EF to 30-35% with similar wall motion abnormalities With pulmonary edema, respiratory failure and pleural effusion all improving with initial diuresis Lipid panel acceptable except low HDL, LDL 130 With severely uncontrolled diabetes with hemoglobin A1c 11.7% Appreciate cardiology consultation, appreciate disk operator management-extubated on morning of 06/16 and now weaned to room air Still has some PERALTA but will defer any further diuretics to Cardiology With new onset atrial flutter x 25 min on AM of 06/18, spontaneously converted to NSR -continue metoprolol tartrate to 25 Mg p.o. twice daily and eventually switch to [id number] likely tolerate higher dose perhaps 75mg of XL -Started losartan 12.5 Mg p.o. once daily as per cardiology -Continue DAPT with aspirin and Brilinta; if needs AC for Aflutter, would likely need to stop ASA-defer to Cardiology -Continue high intensity statin with atorvastatin 80 Mg once daily -Referred to cardiac rehab as an outpatient -Add on SGLT2 as an outpatient if affordable -Will need a LifeVest on discharge-Case management consulted (2) Atrial flutter: Plan: Had 25 min of rapid aflutter to the 130s on AM of 06/18, spontaneously converted to sinus was asymptomatic all lytes are replete continue to monitor on tele will d/w Cardiology about titrating up metoprolol and whether or not to start anticoagulation (3) CHF (congestive heart failure): Plan: As above Daily I's and O's, weights, low-sodium diet, fluid restriction may need further diuretics (4) Acute respiratory failure with hypoxia: Plan: Acute respiratory failure secondary to pulmonary edema and STEMI - Required intubation and mechanical ventilation Now extubated and weaned to room air Diuresis as needed (5) CAD (coronary artery disease): Plan: Severe, as above (6) Diabetes: Plan: With known history of diabetes for years but he has not been seeing a doctor or on any medication Hemoglobin A1c here elevated 11.7% Continue basal and bolus insulin Consult diabetes education-will need glucometer, test strips, lancets Will need to go home on insulin Also will need SGLT2 (7) Fever: Plan: Had a fever with T-max 38.2 on the evening of 06/16 Now resolved Repeat limited echo without evidence of pericarditis Possibly from atelectasis Was given 1 dose of ceftriaxone-hold off on further antibiotics Follow blood cultures-no growth to date Leukocytosis now much improved and he also received steroids on admission which may been contributing to leukocytosis (8) Leukocytosis: Plan: WBC 17 on arrival with Neutrophil predominance DDX: Acute stress elevation vs. Infectious Did have a fever on the night of 06/16 as above - COVID and Respiratory BIOFIRE- NEGATIVE -Blood cultures-no growth to date Now improving Plan DVT prophylaxis-SCDs, Lovenox Disposition-continued stay PCU Continued stay, possible discharge home next 1 to 2 days. He will need a LifeVest at discharge-upper caser working on this. Needs PCP arranged at discharge Can ambulate halls Admission and Anticipated Discharge Date Admission Date: June 15, 2022 Subjective Pt feels a little bit dyspneic with walking around the room. No CP, no lightheadedness, no nausea or abd pain. Had atrial flutter early this AM for about 25 min but couldn't really tell-no palpitations, chest pain, SOB. Has been in NSR ever since he spontaneously converted. Review of Systems Review of Systems: All systems reviewed & are unremarkable except as noted in HPI & below Physical Exam Constitutional: WD/WN, vitals as above Eyes: + anicteric sclerae ENMT: external ear and nose normal, oropharynx normal Neck: trachea midline, no thyromegaly Respiratory: normal respiratory effort; no cough Auscultation: lungs clear to auscultation bilaterally Cardiovascular: Rate/Rhythm: regular rate and regular rhythm Heart Sounds: + murmur (1/6 systolic murmur at apex) Chest (Breasts): Chest: normal inspection of chest Gastrointestinal (Abdomen): normal bowel sounds, soft, nontender, no hepatosplenomegaly Musculoskeletal: Extremities: extremities normal to inspection; no cyanosis and no clubbing Skin: no rashes, warm and dry Neurologic: moves all extremities and awake; no focal motor deficits Psychiatric: A+Ox3, euthymic affect Lymphatic: no lymphedema Results & Data Results & Data ([facility]) Vital Signs (Past 12 Hours) Vital Signs Temp Pulse Pulse Pulse Resp BP Pulse Ox 06/18/22 11:04 36.8 C 98 H 21 116/79 96 06/18/22 08:30 91 H 06/18/22 08:24 36.6 C 104 H 18 98/68 L 96 06/18/22 04:30 144 H 112/78 06/18/22 04:04 36.7 C 100 H 16 107/68 96 O2 Del Method 06/18/22 11:04 Room Air 06/18/22 08:30 06/18/22 08:24 Room Air 06/18/22 04:30 06/18/22 04:04 Laboratory Results 06/18/22 06/18/22 06/18/22 Range/Units 11:09 07:30 06:55 WBC (4.8-10.8) K/ul RBC (4.63-6.08) M/uL Hgb (14.0-18.0) g/dl Hct (40.1-51.0) % MCV (80.0-100.0) fL MCH (25.0-34.0) pg MCHC (32.0-36.0) g/dL RDW Std Deviation (36.4-46.3) fL RDW Coeff of Kiya (11.5-14.5) % Plt Count (130-400) K/uL MPV (9.4-12.4) fL Immature Gran % (Auto) % Neut % (Auto) % Lymph % (Auto) % Glades % (Auto) % Eos % (Auto) % Baso % (Auto) % Neut # (Auto) (1.4-6.5) K/uL Lymph # (Auto) (1.2-3.4) K/uL Glades # (Auto) (0.24-0.82) K/uL Eos # (Auto) (0-0.50) K/uL Baso # (Auto) (0-0.2) K/uL Immature Gran # (Auto) (0.00-0.02) K/uL Sodium 133 L (136-145) mmol/L Potassium 4.0 (3.5-5.1) mmol/L Chloride 100 (98-107) mmol/L Carbon Dioxide 25 (21-32) mmol/L Anion Gap 8 (3-11) BUN 22 (6-23) mg/dl Creatinine 0.82 (0.6-1.4) mg/dl Est Cr Clr Drug Dosing 112.7 ml/min Est GFR ( Amer) 113.0 ml/min Est GFR (Non-Af Amer) 97.5 ml/min BUN/Creatinine Ratio 26.8 H (10-20) Glucose 126 H (70-99(Fasting)) mg/dl POC Glucose 145 H 111 H (70-99) mg/dl Calcium 8.0 L (8.5-10.1) mg/dl Phosphorus 3.1 (2.5-4.9) mg/dl Magnesium 2.2 (1.7-2.4) mg/dl Total Bilirubin 1.1 H (0.2-1.0) mg/dl Direct Bilirubin 0.2 (0-0.2) mg/dl AST 36 (13-39) U/L ALT 46 (7-52) U/L Alkaline Phosphatase 96 (34-104) U/L Total Protein 5.9 L (6.0-8.3) gm/dl Albumin 3.0 L (3.4-5.0) gm/dl 06/18/22 06/18/22 06/17/22 Range/Units 06:55 01:58 20:09 WBC 11.45 H (4.8-10.8) K/ul RBC 4.23 L (4.63-6.08) M/uL Hgb 12.6 L (14.0-18.0) g/dl Hct 36.9 L (40.1-51.0) % MCV 87.2 (80.0-100.0) fL MCH 29.8 (25.0-34.0) pg MCHC 34.1 (32.0-36.0) g/dL RDW Std Deviation 38.1 (36.4-46.3) fL RDW Coeff of Kiya 11.9 (11.5-14.5) % Plt Count 231 (130-400) K/uL MPV 9.5 (9.4-12.4) fL Immature Gran % (Auto) 0.9 % Neut % (Auto) 77.8 % Lymph % (Auto) 10.7 % Glades % (Auto) 10.0 % Eos % (Auto) 0.3 % Baso % (Auto) 0.3 % Neut # (Auto) 8.91 H (1.4-6.5) K/uL Lymph # (Auto) 1.23 (1.2-3.4) K/uL Glades # (Auto) 1.14 H (0.24-0.82) K/uL Eos # (Auto) 0.04 (0-0.50) K/uL Baso # (Auto) 0.03 (0-0.2) K/uL Immature Gran # (Auto) 0.10 H (0.00-0.02) K/uL Sodium (136-145) mmol/L Potassium (3.5-5.1) mmol/L Chloride (98-107) mmol/L Carbon Dioxide (21-32) mmol/L Anion Gap (3-11) BUN (6-23) mg/dl Creatinine (0.6-1.4) mg/dl Est Cr Clr Drug Dosing ml/min Est GFR ( Amer) ml/min Est GFR (Non-Af Amer) ml/min BUN/Creatinine Ratio (10-20) Glucose (70-99(Fasting)) mg/dl POC Glucose 143 H 173 H (70-99) mg/dl Calcium (8.5-10.1) mg/dl Phosphorus (2.5-4.9) mg/dl Magnesium (1.7-2.4) mg/dl Total Bilirubin (0.2-1.0) mg/dl Direct Bilirubin (0-0.2) mg/dl AST (13-39) U/L ALT (7-52) U/L Alkaline Phosphatase (34-104) U/L Total Protein (6.0-8.3) gm/dl Albumin (3.4-5.0) gm/dl 06/17/22 Range/Units 16:18 WBC (4.8-10.8) K/ul RBC (4.63-6.08) M/uL Hgb (14.0-18.0) g/dl Hct (40.1-51.0) % MCV (80.0-100.0) fL MCH (25.0-34.0) pg MCHC (32.0-36.0) g/dL RDW Std Deviation (36.4-46.3) fL RDW Coeff of Kiya (11.5-14.5) % Plt Count (130-400) K/uL MPV (9.4-12.4) fL Immature Gran % (Auto) % Neut % (Auto) % Lymph % (Auto) % Glades % (Auto) % Eos % (Auto) % Baso % (Auto) % Neut # (Auto) (1.4-6.5) K/uL Lymph # (Auto) (1.2-3.4) K/uL Glades # (Auto) (0.24-0.82) K/uL Eos # (Auto) (0-0.50) K/uL Baso # (Auto) (0-0.2) K/uL Immature Gran # (Auto) (0.00-0.02) K/uL Sodium (136-145) mmol/L Potassium (3.5-5.1) mmol/L Chloride (98-107) mmol/L Carbon Dioxide (21-32) mmol/L Anion Gap (3-11) BUN (6-23) mg/dl Creatinine (0.6-1.4) mg/dl Est Cr Clr Drug Dosing ml/min Est GFR ( Amer) ml/min Est GFR (Non-Af Amer) ml/min BUN/Creatinine Ratio (10-20) Glucose (70-99(Fasting)) mg/dl POC Glucose 228 H (70-99) mg/dl Calcium (8.5-10.1) mg/dl Phosphorus (2.5-4.9) mg/dl Magnesium (1.7-2.4) mg/dl Total Bilirubin (0.2-1.0) mg/dl Direct Bilirubin (0-0.2) mg/dl AST (13-39) U/L ALT (7-52) U/L Alkaline Phosphatase (34-104) U/L Total Protein (6.0-8.3) gm/dl Albumin (3.4-5.0) gm/dl PG Care Time/CCT Total # of Minutes Spent Total Time Spent with Patient: Total time spent is greater than 50% in coordination of care (as documented) at patient's floor/unit and/or counseling patient: Coding Level of Care Code 72143 Subseq Hosp Care Lvl 3 Diagnoses STEMI (ST elevation myocardial infarction) I21.3 Atrial flutter I48.92 CHF (congestive heart failure) I50.9 Heart failure chronicity: acute Heart failure type: unspecified Acute respiratory failure with hypoxia J96.01 CAD (coronary artery disease) I25.10 Diabetes E11.9 Fever R50.9 Leukocytosis D72.829 (1) CHF (congestive heart failure) Heart failure chronicity: acute Heart failure type: unspecified Qualified Code(s): I50.9 - Heart failure, unspecified
--- NOTE | 2022-06-18 17:32 | Cardiology Progress Note ---
Date of Service June 18, 2022 Assessment & Plan (1) CAD (coronary artery disease): Plan: Inferior STEMIpost PCI with 4 SAMANTHA to RCA into PDA, post procedure KIRSTEN I flow post PCI to proximal LAD single with SAMANTHA Residual 70% OM disease 2. Acute heart failure/ischemic cardiomyopathyEF 30-35%, inferior akinesis, LAD distribution wall motion abnormality 3. Poorly controlled type 2 [id number] 11.7 4. Dyslipidemia 5. Mild AKIresolved 6. Leukocytosisimproving 7. Pleural effusion 8. Brief atrial flutter with RVR Asymptomatic episode of atrial flutter with RVR on telemetry. No recurrent chest pain Hemodynamically stable. Patient at elevated risk for LV thrombus with apical akinesis and with episode of atrial flutter favor starting anticoagulation. Start Eliquis 5 mg twice daily today Transition ticagrelor to clopidogrel. Start loading dose 300 mg tomorrow. We will continue triple therapy with aspirin for next month and reassess Continue current metoprolol 25 mg twice daily, transition to Toprol on discharge. Continue losartan. Continue current atorvastatin Plan on LifeVest on discharge Hopefully SGLT2 as an outpatient Up walking in [place] today. If no additional symptoms, electrically stable overnight possible discharge tomorrow. Admission and Anticipated Discharge Date Admission Date: June 15, 2022 Subjective Around 4 AM this morning had an episode of atrial flutter with RVR up to 140s. Spontaneously converted after about 25 minutes. Asymptomatic with event. Has remained in normal sinus rhythm since. Today denies chest pain or presyncope. Mild shortness of breath walking around the room. No other concerns. Review of Systems Review of Systems: Unobtainable due to cognitive status Physical Exam Physical Exam: General: Comfortable, sitting up in chair HEENT: Sclerae anicteric Lungs: Clear Cardiac: regular, no murmur appreciated today Vascular: Right radial artery access site with no ecchymosis, hematoma. Distal pulse and sensation intact. Abdomen: Soft, nontender Extremities: Warm intact DP pulses. No edema. Neuro: Nonfocal Psych: Alert and oriented Results & Data ([facility]) Vital Signs (Past 12 Hours) Vital Signs Temp Pulse Pulse Resp BP Pulse Ox O2 Del Method 06/18/22 15:46 98.2 F 90 19 98/64 L 97 Room Air 06/18/22 11:04 98.2 F 98 H 21 116/79 96 Room Air 06/18/22 08:30 91 H 06/18/22 08:24 97.9 F 104 H 18 98/68 L 96 Room Air PG Care Time/CCT Total # of Minutes Spent Total Time Spent with Patient: Total time spent is greater than 50% in coordination of care (as documented) at patient's floor/unit and/or counseling patient: Coding Level of Care Code 06173 Subseq Hosp Care Lvl 3 Diagnoses CAD (coronary artery disease) I25.10
[2022-06-18] MEDS: SENNA 8.6 MG TAB PO SCH (19:36)
[2022-06-19 07:54] LABS: Basophils # (auto) 0.04 K/uL (0-0.2); Basophils % (auto) 0.4 %; Eosinophils # (auto) 0.09 K/uL (0-0.50); Hematocrit (blood only) 38.5 % (40.1-51.0); Hemoglobin 13.3 g/dl (14.0-18.0); Immature Granulocytes # (auto) 0.16 K/uL (0.00-0.02); Immature Granulocytes % (auto) 1.8 %; Lymphocytes # (auto) 1.06 K/uL (1.2-3.4); Lymphocytes % (auto) 11.8 %; Mean Corpuscular Hemoglobin 30.3 pg (25.0-34.0); Mean Corpuscular Hgb Conc 34.5 g/dL (32.0-36.0); Mean Corpuscular Volume 87.7 fL (80.0-100.0); Mean Platelet Volume 9.6 fL (9.4-12.4); Monocytes # (auto) 0.77 K/uL (0.24-0.82); Monocytes % (auto) 8.6 %; Neutrophils # (auto) 6.84 K/uL (1.4-6.5); Neutrophils % (auto) 76.4 %; Platelet Count 273 K/uL (130-400); RDW Coefficient of Variation 11.9 % (11.5-14.5); RDW Standard Deviation 38.7 fL (36.4-46.3); Red Blood Count 4.39 M/uL (4.63-6.08); White Blood Count 8.96 K/ul (4.8-10.8)
[2022-06-19] MEDS: INSULIN ASPART PER UNIT SC SCH ×2 (08:00→12:08)
[2022-06-19] MEDS: LANTUS PER UNIT CHARGE SQ SCH (08:04)
[2022-06-19 08:22] LABS: BUN Creatinine Ratio 26.1 (10-20); Est GFR (African American) 109.7 ml/min; Est GFR (Non-African American) 94.7 ml/min; Magnesium 2.2 mg/dl (1.7-2.4); Potassium 3.7 mmol/L (3.5-5.1)
[2022-06-19] MEDS ORDERED: APIXABAN 5 MG TABLET PO SCH (09:00)
[2022-06-19] MEDS ORDERED: CLOPIDOGREL BISULFATE 300 MG TAB PO ONE (09:00)
[2022-06-19] MEDS: ASPIRIN 81 MG ECTAB PO SCH (09:25)
[2022-06-19] MEDS: METOPROLOL TARTRATE 25 MG TAB PO SCH (09:25)
[2022-06-19] MEDS: DOCUSATE SODIUM 100 MG CAP PO SCH (09:25)
[2022-06-19] MEDS: PANTOprazole 40 MG TAB PO SCH (09:25)
[2022-06-19] MEDS: ATORVASTATIN 40 MG TAB PO SCH (09:26)
[2022-06-19] MEDS: LOSARTAN POTASSIUM 25 MG TAB PO SCH (10:35)
[2022-06-19] MEDS ORDERED: CLOPIDOGREL BISULFATE 300 MG TAB ONE (11:26)
--- NOTE | 2022-06-19 11:52 | Cardiology Progress Note ---
Date of Service June 19, 2022 Assessment & Plan (1) CAD (coronary artery disease): Plan: Inferior STEMIpost PCI with 4 SAMANTHA to RCA into PDA, post procedure KIRSTEN I flow post PCI to proximal LAD single with SAMANTHA Residual 70% OM disease 2. Acute heart failure/ischemic cardiomyopathyEF 30-35%, inferior akinesis, LAD distribution wall motion abnormality 3. Poorly controlled type 2 [id number] 11.7 4. Dyslipidemia 5. Mild AKIresolved 6. Leukocytosisimproving 7. Pleural effusion 8. Brief atrial flutter with RVR Stable from a cardiac standpoint and OK for discharge today. Home on: -- Triple therapy with Eliquis 5mg BID, clopidogrel, and ASA 81mg. -- Transition to toprol XL 50mg. Continue Losartan. Continue current atorvastatin -- Has LifeVest in place. Hopefully SGLT2 as an outpatient Follow-up with me in 1-2 weeks. Admission and Anticipated Discharge Date Admission Date: June 15, 2022 Subjective Feeling well this morning. Walked around without significant shortness of breath. No chest pain. Had a ~3 min of Aflutter around midnight last night, asymptomatic. LifeVest in place. Review of Systems Review of Systems: All systems reviewed & are unremarkable except as noted in HPI & below Physical Exam Physical Exam: General: Comfortable, sitting up in chair HEENT: Sclerae anicteric Lungs: Clear Cardiac: regular, no murmur appreciated today Vascular: Right radial artery access site with no ecchymosis, hematoma. Distal pulse and sensation intact. Abdomen: Soft, nontender Extremities: Warm intact DP pulses. No edema. Neuro: Nonfocal Psych: Alert and oriented Results & Data ([facility]) Vital Signs (Past 12 Hours) Vital Signs Temp Pulse Pulse Resp BP Pulse Ox O2 Del Method 06/19/22 08:00 90 06/19/22 08:00 Room Air 06/19/22 07:07 97.9 F 84 18 110/77 96 Room Air 06/19/22 03:00 98.1 F 92 H 20 119/77 97 Room Air PG Care Time/CCT Total # of Minutes Spent Total Time Spent with Patient: Total time spent is greater than 50% in coordination of care (as documented) at patient's floor/unit and/or counseling patient: Coding Level of Care Code 00130 Subseq Hosp Care Lvl 3 Diagnoses CAD (coronary artery disease) I25.10
--- NOTE | 2022-06-19 13:04 | Discharge Summary ---
Date of Service June 19, 2022 Admission HPI Per Admitting Provider 57 YOM with no known significant medical history, he is accompanied by his brother who endorses that he doesn't really follow with any Physicians, and reports that he gets most of his care at [facility]. The patient was last seen here in 2008 for mediastinal lymphadenopathy and dyspnea. This was evaluated and thought to be pneumonitis. He had an ECHO in 2008 with 65% and tachycardia. No valvular abnormalities. Patient called his brother around 0800 this morning and asked him to take him to the Emergency room. Reported history of dyspnea since Wednesday. He took COVID tests at home thinking he had COVID these were reportedly negative. He told his brother he was having chest pain this morning. His brother states that he had to help him get dressed because of his difficulty breathing. He had trouble getting him to the car. In the EMD the patient had routine labs performed to include HScTNI, ECG, CXR. He was given 60mg Of Lasix, trial of BiPAP which he failed, 60mg of solumederol and nebulizer. His ECG re turned with ST elevations with reciprocal changes and Q-waves. He was given Aspirin Heart alert was called. He was intubated, placed on nitroglycerine and taken to the laboratory mechanic helper. COVID and respiratory BIOFIRE was: NEGATIVE Principal Diagnosis STEMI, severe CAD, atrial flutter, ischemic cardiomyopathy Discharge Exam Constitutional WD/WN, vitals as above Eyes + anicteric sclerae ENMT external ear and nose normal, oropharynx normal Neck trachea midline, no thyromegaly Respiratory normal respiratory effort; no cough Auscultation: lungs clear to auscultation bilaterally and + rhonchi Cardiovascular Rate/Rhythm: regular rate and regular rhythm Heart Sounds: + murmur (1/6 systolic murmur at apex) Chest (Breasts) Chest: + abnormal inspection of chest (Life vest in place) Gastrointestinal (Abdomen) normal bowel sounds, soft, nontender, no hepatosplenomegaly Musculoskeletal Extremities: extremities normal to inspection; no cyanosis and no clubbing Skin no rashes, warm and dry Neurologic moves all extremities and awake; no focal motor deficits Psychiatric A+Ox3, euthymic affect Lymphatic no lymphedema Discharge Data Allergies Allergy/AdvReac Type Severity Reaction Status Date / Time No Known Allergies Allergy Unknown Verified 06/29/22 14:11 Consultations 06/15/22 10:17 ED Decision to Admit Stat 06/15/22 13:52 Consult Cardiac Rehabilitation Routine Consult Perinatal Tech Routine 06/15/22 14:08 Consult Perinatal Tech Routine Procedures Performed Operation Date: 06/15/22 10:00 Actual Procedures s Cineradiography w/Routine Exam - Harrison Black MD p Aspiration/PCI w/SAMANTHA for Stemi - Harrison Black MD s Cath, Left with Cors and Vent - Harrison Black MD s IVUS Coronary each ADDL Vessel - Harrison Black MD s IVUS Coronary Single Vessel - Harrison Black MD s Drug Eluting Stent each ADDTL Vessel - Harrison Blakc MD Ordered Studies 06/15/22 07:36 CL IVUS Coronary Single Vessel Routine 06/15/22 09:49 CL Cath Imgs for PACS use only Stat Echocardiogram Hospital Course (1) STEMI (ST elevation myocardial infarction): Patient admitted following 3 day history of dyspnea and onset of chest pain. Elevated HScTNI with ECG changes. Patient was intubated and emergently taken to the dentures lab technician for interventional evaluation Was a heart alert and had 4 overlapping drug-eluting stents placed in RCA and 1 in the LAD with poor flow in the RCA Troponin peaked at 28,639 and now remains chest pain-free With resultant ischemic cardiomyopathy: Echocardiogram with initial EF 20-25% w ith wall motion abnormalities. Repeat limited echo on 06/17 with improvement in EF to 30-35% with similar wall motion abnormalities With pulmonary edema, respiratory failure and pleural effusion all improving with initial diuresis Lipid panel acceptable except low HDL, LDL 130 With severely uncontrolled diabetes with hemoglobin A1c 11.7% Appreciate cardiology consultation, appreciate movie extra management-extubated on morning of 06/16 and now weaned to room air Still has some PERALTA but improving daily and no further diuretics needed at this point With new onset atrial flutter x 25 min on AM of 06/18 and again for a few minutes the following evening patient both times spontaneously converted to NSR -continue Toprol-XL 50 mg daily on discharge -Started losartan 25 Mg p.o. once daily as per cardiology -Continue DAPT with aspirin and switch Brilinta to Plavix-starting Eliquis for atrial flutter-then discontinue aspirin in 2 weeks -Continue high intensity statin with atorvastatin 80 Mg once daily -Referred to cardiac rehab as an outpatient -Add on SGLT2 as an outpatient if affordable -Will need a LifeVest on discharge-placed prior to discharge -Follow-up with cardiology within 1 week after discharge (2) Atrial flutter: Had 25 min of rapid aflutter to the 130s on AM of 06/18, spontaneously converted to sinus was asymptomatic all lytes are replete continue to monitor on tele started Eliquis as above (3) CHF (congestive heart failure): Acute systolic CHF Daily I's and O's, weights, low-sodium diet, fluid restriction Euvolemic at the time of discharge Continue Toprol-XL, losartan follow-up as an outpatient Secondary to ischemic cardiomyopathy (4) Acute respiratory failure with hypoxia: Acute respiratory failure secondary to pulmonary edema and STEMI - Required intubation and mechanical ventilation Now extubated and weaned to room air (5) CAD (coronary artery disease): Severe, as above (6) Diabetes: With known history of diabetes for years but he has not been seeing a doctor or on any medication Hemoglobin A1c here elevated 11.7% Continue basal and bolus insulin Consult diabetes education-will need glucometer, test strips, lancets Will need to go home on insulin Also will need SGLT2 eventually as an outpatient (7) Fever: Had a fever with T-max 38.2 on the evening of 06/16 Now resolved spontaneously Repeat limited echo without evidence of pericarditis Possibly from atelectasis Was given 1 dose of ceftriaxone-hold off on further antibiotics Follow blood cultures-no growth to date Leukocytosis now much improved and he also received steroids on admission which may been contributing to leukocytosis (8) Leukocytosis: WBC 17 on arrival with Neutrophil predominance DDX: Acute stress elevation vs. Infectious Did have a fever on the night of 06/16 as above - COVID and Respiratory BIOFIRE- NEGATIVE -Blood cultures-no growth to date Now improving Plan DVT prophylaxis-SCDs, Eliquis Disposition-stable for discharge home, arrangements have been made to get him established with a new primary care provider Total Time Total Time Spent Total Time Spent (In Minutes): 35 min Discharge Plan Discharge Items Patient Disposition: Home - Self-Care Reason For Visit: CHEST PAIN, CHF, ABNORMAL EKG Discharge Diagnosis: ST Elevation [place], Uncontrolled diabetes mellitus, Atrial flutter, Ischemic cardiomyopathy, Acute respiratory failure with hypoxia Condition on Discharge: Good Activity: As commented below Lifting: No more than 5 pounds Bathing: No limitations Exercise/Sports: Wait until after follow-up appointment Driving/Machine Use: Resume 3 days after discharge Non-emergency contact: Primary Care Provider and Rag Collector Call non-emergency contact if: you have any medication questions, your symptoms worsen and your pain is not controlled Follow-up/Referrals: Cristela Bledsoe CRNP [Nurse Practitioner] - 06/25/22 10:30 am Harrison Black MD [Physician] - (Dr. Black' office will be contacting you regarding your follow up appointment.) PCP,NO [Primary Care Provider] - Diet: Carb Consistent or DM2, Heart Healthy and Low Sodium (2gm) Fluids: 1500ml (6 cups) Addtl Attending Provider Instructions: You were admitted with a heart attack and had multiple stents placed in your heart to open up the blockages. It is very important that you follow the m edication list carefully and take each medication as prescribed to prevent recurrence of your heart attack. Good control of your diabetes is also important. You will be started on insulin again to help with this in addition to metformin. You will need to buy the test strips and lancets at the store that match up with your glucometer. Please check your blood sugars throughout the day as directed by the personal development educator. Follow up with your new primary care provider within 1 week as scheduled for you. Please continue to wear your Life Vest as directed to help prevent cardiac arrest. Home Care: * Take your medications exactly as directed. Don't skip doses. * Remember that recovery after a heart attack takes time. Plan to rest for at lease 4-8 weeks while you recover. Then return to normal activity when your doctor says it's okay. * Ask your doctor about joining a heart rehabilitation program. * Tell your doctor if you are feeling depressed. Feelings of sadness are common after a heart attack, but it is important that you speak to someone if you are feeling overwhelmed by these feelings. * If you are having chest pain, call 911 for an ambulance. Do NOT drive yourself to the hospital. * Ask your family members to learn CPR. * Learn to take your own blood pressure and pulse. Keep a record of your results. Ask your doctor when you should seek emergency medical attention. He or she will tell you which blood pressure reading is dangerous. Lifestyle Changes: * Maintain a healthy weight. Get help to lose any extra pounds. * Cut back on salt. * Limit canned, dried, packaged, and fast foods. * Don't add salt to your food. * Season foods with herbs instead of salt when you cook. * Break the smoking habit. Enroll in a stop-smoking program to improve your chances of success. * Limit fatty foods. * Ask your doctor about having your lipid levels checked regularly. * Build up your activity according to your doctor's recommendation. * Ask your doctor when it's okay to resume sexual activity. * Tell your doctor about any erectile dysfunction (ED) medication you are taking. Some ED medications are not safe if you take certain heart medications. * Try to manage stress. Follow Up: It is important for you to keep your follow up appointments with your medical provider. Call your Primary Care doctor if any of the following symptoms or problems start or get worse: * Shortness of breath or difficulty breathing * Wake up at night short of breath * Chest pain * Cough * Swelling of your hands, feet, or legs * More fatigued or tired with your normal activity * Palpitations - sudden fast heart beats WEIGHT * Weigh yourself every morning after using the bathroom. * Use the same scale. * Wear the same amount of clothing. * Write your weight down on a chart. * Call your Primary Care doctor if you gain more than 2-3 pounds in 1-2 days. MEDICATIONS * Use this discharge instruction sheet for medication instructions. * Take your medications at the time your doctor ordered. * Do not skip a dose of your medicines. * If you miss a dose of medicine, take it as soon as possible, but DO NOT DOUBLE A DOSE. * Read your medicine information when you get home. * Know all of the side effects of your medicine. If in doubt, ask your pharmacist * Call your Primary Care doctor's office if you have any side effects. * Be sure all of your doctors know what medicine and herbs you take (including cold, flu, and herbal medicine). Take the following with you to your follow-up doctor appointments: * Weight Chart * Medication List * List of questions Do not drink excessive alcohol, beer or wine. ACTIVITY RECOMMENDATIONS: Excess manipulation of the wrist should be avoided for the next 24-48 hours. * No lifting over 2 pounds (approximately a 1/2 gallon of milk) with the utilized arm for 24 hours. * No strenuous activity such as bowling or tennis for 3 days. * Keep the site of the procedure covered with a bandage for 24 hours. *You may shower the day after the procedure. Do not take a tub bath or submerge the puncture site in water for the next 3 days. *Do not operate any motorized equipment for 3 days. SPECIAL CARE INSTRUCTIONS: The site may be slightly bruised and sore following your procedure. Should any of the following occur, contact the Dr. who performed your procedure. 1. Redness/inflammation, swelling, chills, or fever, or colored drainage at procedure site within 3-7 days after your procedure. 2. Coldness, discoloration, ongoing numbness, severe pain, or swelling. Expect mild tingling of hand and tenderness at the puncture site for up to three days. If this persists beyond three days, or other symptoms develop, notify the Dr. who performed your procedure. BLEEDING: If the procedure site on your wrist begins to bleed, do not panic 1. Place 1 or 2 fingers firmly just slightly above the insertion site to stop the bleeding. You may be able to feel your pulse as you hold pressure. 2. Lift your finger after 5 minutes to see if the bleeding has stopped. 3. Once the bleeding has stopped, gently wipe the wrist area clean with a bandage. * If the bleeding from your wrist does not stop after 10 minutes, or if there is a large amount of bleeding or spurting, call 911 (do not drive yourself to the hospital). SKIN IRRITATION: * You may experience some redness and/or swelling in the area where radiation was administered. If any skin irritation occurs, please contact your family physician. FOLLOW UP VISIT: Keep any scheduled doctor appointments. Pending Studies at Discharge: No Stand-Alone Forms: My [facility], Smoking Cessation, Virtual Emergency Department, Important Visit Information Medications and DC Order Prescriptions: New clopidogrel 75 mg Tablet 75 mg PO QAM Qty: 30 0RF Eliquis 5 mg Tablet 5 mg PO BID Qty: 60 0RF atorvastatin 80 mg tablet 80 mg PO DAILY Qty: 30 0RF aspirin 81 mg Tablet,Delayed Release (Dr/Ec) 81 mg PO QAM Qty: 30 0RF Rx Instructions: Over the counter metformin 500 mg tablet 500 mg PO BID Qty: 60 0RF metoprolol succinate [Toprol XL] 50 mg tablet extended release 24 hr 50 mg PO DAILY Qty: 30 0RF No Action losartan 25 mg tablet 25 mg PO QAM Qty: 30 6RF spironolactone 25 mg tablet 12.5 mg PO DAILY Qty: 30 2RF furosemide 40 mg tablet 40 mg PO DAILY Qty: 30 5RF Rx Instructions: 1 daily till seen by cardiology next week Novolin 70/30 U-100 Insulin 100 unit/mL (70-30) suspension 15 unit subcut BID Qty: 10 4RF Rx Instructions: Tale 20 u in am 15 u in pm Discharge Orders: Discharge Order (Routine); Ordered 06/19/22 Ordered By: Jannie Palacios Admission Data Admit Date/Time: 06/15/22 13:52 Attending Provider: Jannie Palacios Admit Provider: Ady Slade Primary Care Provider: PCP,NO Other Providers: Martin Luis ; Ady Slade Other Interventions: Discharge Summary Assessment (RN) Last Done: 06/19/22 13:32 Coding Level of Care Code D/C DAY MANAGEMENT >30 MINS Diagnoses STEMI (ST elevation myocardial infarction) I21.3 Atrial flutter I48.92 CHF (congestive heart failure) I50.9 Heart failure chronicity: acute Heart failure type: unspecified Acute respiratory failure with hypoxia J96.01 CAD (coronary artery disease) I25.10 Diabetes E11.9 Fever R50.9 Leukocytosis D72.829
--- NOTE | 2022-06-19 14:17 | Pharmacy Report ---
Pharmacy Glycemic Short Note 2 - Date of Service June 19, 2022 - Glycemic Short BSG Results (Last 24 hours): 06/18/22 06/18/22 06/19/22 16:34 19:38 07:08 Glucose POC Glucose 144 H 168 H 127 H 06/19/22 06/19/22 07:11 11:16 Glucose 141 H POC Glucose 180 H OUTPATIENT ANTIDIABETIC REGIMEN: * No prior medications * A1c = 11.7% ASSESSMENT: 06/19/22 * BSGs [phone] mg/dL yesterday. Patient received 30 units of insulin yesterday (10 of basal, 20 of bolus) * Fasting this AM 127 mg/dL, continue 10 units of lantus this AM * Continue to monitor, discharge recommendations discussed with Medical Records Library Professor 06/18/22 * BSGs yesterday were [phone] mg/dL. Patient received 40 units of insulin yesterday (16 units of basal and 24 units of bolus). * Fasting trending downwards today so reduce dose to Lantus 10 units once daily. Monitor. * CR tightened yesterday for dinner which is appropriate. Will monitor. 06/17 * BSGs reasonably controlled following transition off insulin drip yesterday * BSGs did climb into the 240s in the evening however did return to goal this AM following receipt of larger basal insulin dose last evening * Plan to continue scaled Lantus dosing as we have not yet achieved steady state with current insulin regimen * Will also continue current Novolog CF/CR and following post-prandial BSGs today to determine if adjustment needed. 06/16 * Type 2 diabetic admitted for STEMI. * He is now s/p PCI with SAMANTHA's to RCA and LAD * A1c is reflective of poorly controlled DM as outpt and likely need for insulin on discharge, at least initially. Recommend consult Medical Records Library Professor. * Patient was initially managed with insulin drip due to severe hyperglycemia, severe physiologic stressors, mechanical ventilation, pressor support and received of IV solumedrol. This AM however, patient has been extubated, pressors are being weaned and patient's diet is being advanced to clears if tolerated. * Will initiate low dose Lantus based upon weight due to uncertain PO intake to day and lessening stressors. Will dose per scale this evening based upon weight and BSG. * Novolog doses will be based upon weight and "moderate" stress level. PLAN FOR INPATIENT GLYCEMIC CONTROL: * Basal insulin * Lantus 10 units daily * Bolus insulin * NovoLog per scale ACHS and at 0200 tonight * Goal Range: Low 110 mg/dL - High 140 mg/dL * Correction Factor: 20 mg/dL/unit * Nutritional / Prandial insulin per carb ratio of 1 unit per 7 grams CHO consumed
[2022-06-20] MEDS ORDERED: CLOPIDOGREL BISULFATE 75 MG TAB PO SCH (09:00)
== END 2022-06-19 15:26 | disposition home or self-care (01) | DRG 246 ==
LOC: ED 09:14 → OR 11:00 → 1E 11:01 → SUATTDRO 13:52 → 2S 06-17 18:58